=== PATIENT | female | born 1985 | race Two or more races ===

== ENCOUNTER 2023-03-15 17:45 | Inpatient (IN) | payer OTHER, SELFPAY ==
--- NOTE | ~2023-03-15 | CT_ITS ---
EXAMINATION: CT HEAD WITHOUT CONTRAST CLINICAL INFORMATION: Fall. History of epilepsy. COMPARISON: None. TECHNIQUE: Contiguous axial imaging was performed from the skull base to vertex without intravenous administration of contrast. Coronal and sagittal reformatted images are performed at the CT scanner. [This CT examination was performed using dose optimization techniques as appropriate, variously including the following: *Automated exposure control *Adjustment of mA and/or kV according to patient size (this includes techniques or standardized protocols for targeted exams where dose is matched to indication/reason for exam; i.e. extremities or head) *Use of iterative reconstruction technique] DLP: 600 mGy-cm. FINDINGS: There is no evidence of acute intracranial hemorrhage or territorial infarction. No abnormal mass-effect or midline shift is seen. [place] to white matter differentiation is well preserved. No extra-axial fluid collections are identified. The ventricles are normal in size. There is no abnormal attenuation within the brain parenchyma. There is no osseous abnormality. The mastoid air cells and visualized portions of the paranasal sinuses are well-aerated. CT/CT head/brain wo IV con IMPRESSION: No acute intracranial pathology.
[2023-03-15 18:50] VITALS: BP 142/88; PULSE 115; TEMP 36.3; O2SAT 99
[2023-03-15 19:26] VITALS: BMI 39.2
--- NOTE | 2023-03-15 23:24 | PC.ADMIT ---
Patient is a 38 year old mostly Lithuanian speaking female, admitted as a CV admission to at 1830 and placed on 15 minute safety check. Patient was a transfer from [facility], where she was medically cleared, evaluated and deemed in need of IPLOC secondary to aggressive behavior and there is a question if any of her medications might be the cause. According to the intake, patient's mother is telling patient that the patient is responding to AH. Patient was cooperative but quiet during the admission process. She appeared distracted or responding to internal stimuli. She denied any SI, HI AH or VH. She said she was anxious at a 6/10 but not depressed. She was somewhat guarded as to her reason for admission and said I don't want to talk about it . She signed releases and was able to answer questions. Patient has no previous admission to , but she is known to [facility]. Patient cooperative with skin check. Did look around the unit. Ready to take medications at HS. Treatment plan and safety tool done and need to be signed.
[2023-03-15] MEDS: risperiDONE 3 MG TABLET PO (23:38)
[2023-03-16] MEDS: Omeprazole 20 MG CAPSULE.DR PO (06:18)
[2023-03-16 09:05] VITALS: BP 106/76; PULSE 120; RESP 18; TEMP 36.4; O2SAT 98
[2023-03-16] MEDS: Divalproex Sodium ER 500 MG TAB.ER.24H PO (09:06)
[2023-03-16] MEDS: Multivitamin TABLET 1 TAB PO (09:06)
[2023-03-16 09:16] LABS: MANUAL DIFF FLAG NO
[2023-03-16 09:19] LABS: Basophils Percent Auto 0.4 % (0-2); Eosinophils Absolute Auto 0.2 X10*3/uL (0.0-0.4); Eosinophils Percent Auto 1.8 % (0-4); Hemoglobin 12.9 g/dl (12.0-16.0); Imm Gran Abs Auto 0.14 X10*3/uL (0.00-0.03); Imm Gran Pct Auto 1.7 % (0.0-0.4); Lymphocytes Percent Auto 36.2 % (20-40); Mean Corpuscular HGB Conc 33.1 g/dl (31.0-35.0); Mean Corpuscular Hemoglobin 30.4 pg (27.0-33.0); Mean Platelet Volume 9.1 fL (9.4-12.3); Monocytes Absolute Auto 0.7 X10*3/uL (0.1-1.2); Monocytes Percent Auto 8.8 % (2-11); Neutrophils Absolute Auto 4.2 x10*3/uL (2.0-8.3); Neutrophils Percent Auto 51.1 % (45-73); Platelet Count 268 X10*3/uL (160-400); Red Blood Count 4.24 X10*6/uL (4.20-5.50); Red Cell Distribution Width 14.6 % (11.0-16.0); White Blood Count 8.2 X10*3/uL (4.8-10.8)
[2023-03-16 09:32] LABS: Estimated Average Glucose 103 mg/dL; Hemoglobin A1c % 5.2 % (<6.0)
[2023-03-16 09:42] LABS: Alanine Aminotransferase 30 U/L (0-31); Albumin Level 4.2 g/dL (3.5-5.0); Alkaline Phosphatase 107 U/L (39-117); Anion Gap 16 (12-20); Aspartate Amino Transferase 34 U/L (5-31); Bilirubin Direct 0.3 mg/dL (0.0-0.5); Bilirubin Total 0.4 mg/dL (0.0-1.0); Blood Urea Nitrogen 11 mg/dL (9-16); Calcium 9.3 mg/dL (8.4-10.2); Carbon Dioxide 22 mmol/L (22-29); Chloride 107 mmol/L (96-108); Cholesterol 159 mg/dL (<200); Creatinine Clr Calc Pharmacy 60.1; Estimated Glomerular Filt Rate 47; Glucose Fasting 131 mg/dL (60-99); HDL Cholesterol 51 mg/dL (>40); LDL Cholesterol Calculated 78 mg/dL (<100); Potassium 3.6 mmol/L (3.3-5.1); Sodium 141 mmol/L (135-145); Total Protein 7.5 g/dL (6.5-8.0); Triglycerides 152 mg/dL (<150)
[2023-03-16 09:52] LABS: Free T4 (Free Thyroxine) 1.06 ng/dL (0.71-1.85); Thyroid Stimulating Hormone 2.29 uIU/mL (0.32-4.0)
[2023-03-16 10:06] LABS: Vitamin B12 591 pg/mL (200-900)
--- NOTE | 2023-03-16 12:43 | P.CONHOSP_ITS ---
History of Present Illness Data of Consult Service Date: 03/16/23 Primary Care Provider: Unknown Physician HPI Reason for consult: Admission H&P Pt is a 38-year-old female with a PMH significant for?seizure disorder, anxiety, depression, and bipolar disorder who is admitted to M3 psychiatry unit for increasing paranoia and appearing withdrawn. Patient presented accompanied by her family report she has been hearing voices, responding to internal stimuli, and been noncompliant with her medications. Medical consult for admission H&P. ?Patient appears very subdued and quiet, and is mostly cooperative with interview and examination, though refuses some aspects of HPI and PE. Patient does not appear to be fully aware of her medical history, though does report a history of seizure disorder. She is very vague of what occurs when she has a seizure or how often she experiences them, but they appear to occur at least on a weekly basis. She apparently sees a neurologist outpatient who manages her condition, but it is unclear when her last visit was. She denies any other PMH. Currently she voices no acute medical complaints at this time. Denies chest pain/pressure, palpitations. No shortness of breath. Denies fever, chills, nausea, vomiting, diarrhea, abdominal pain. No headache, acute vision changes. Labs reviewed, grossly unremarkable. Review of Systems 2 Review of Systems: Pt has no acute medical complaints at this time [facility] Medical History Seizure disorder Schizoaffective disorder, bipolar type Social History Household Members: Children Household Members Other:: Lives with son Housing: Apartment Do you presently have visiting nurse or other home services: No Patient Tobacco Use Status: Former Tobacco user Tobacco use type: Cigarette Smoked in Last 30 Days: No Patient Interested in Nicotine Replacement: No Patient Given Instructions on How to Stop Smoking: No Second Hand Smoke Exposure: No Use of substances other than those prescribed or required for medical reasons: No Currently Displaying Signs/Symptoms of Drug Intoxication Withdrawal: No Have you been hit, kicked, punched, or otherwise hurt by someone within the past year? If so, by whom?: No Do you feel safe in your current relationship?: No Current Relationship Is there a partner from a previous relationship who is making you feel unsafe now?: No Are you made to feel afraid or neglected: No Spiritual Healthcare Practices: None Reported Restorationist Healthcare Practices: None Reported Cultural Healthcare Practices: None Reported Advance Directives: No Advance Directives Information Provided: No Do you have thoughts of harming others: None Do you have a plan to hurt others: No Plan Recently lost weight without trying: No Eating poorly because of decreased appetite: No Nutrition Risks: No Nutritional Risk Patient : No : No Poor oral hygiene: No Meds Allergies Allergy/AdvReac Type Severity Reaction Status Date / Time folic acid Allergy Unknown Verified 03/15/23 16:35 ibuprofen Allergy Unknown Verified 03/15/23 16:35 loratadine Allergy Unknown Verified 03/15/23 16:35 phenytoin Allergy Unknown Verified 03/15/23 16:35 Active Medications: Current Medications Acetaminophen (Acetaminophen 325 Mg Tablet) 650 mg PO Q6H PRN PRN Reason: Headache/Pain Mild Scale (1-3) Al Hydroxide/Mg Hydroxide (Magnesium Hydrox/Alum Hydrox 30 Ml Oral.Susp) 30 ml PO Q6H PRN PRN Reason: Heartburn/Nausea Divalproex Sodium (Divalproex Sodium Er 500 Mg Tab.Er.24h) 500 mg PO DAILY [facility] Last Admin: 03/16/23 09:06 Dose: 500 mg Hydroxyzine HCl (Hydroxyzine Hcl 25 Mg Tablet) 25 mg PO Q6H PRN PRN Reason: Anxiety Magnesium Hydroxide (Milk Of Magnesia 30 Ml Oral.Susp) 30 ml PO DAILY PRN PRN Reason: Constipation Multivitamins/Vitamin C (Multivitamin Tablet) 1 tab PO DAILY [facility] Last Admin: 03/16/23 09:06 Dose: 1 tab Nicotine Polacrilex (Nicotine Polacrilex 2 Mg Gum) 4 mg BUCCAL Q2H PRN PRN Reason: Nicotine Cravings Omeprazole (Omeprazole 20 Mg Capsule.Dr) 20 mg PO DAILY@0630 [facility] Last Admin: 03/16/23 06:18 Dose: 20 mg Risperidone (Risperidone 3 Mg Tablet) 3 mg PO BEDTIME [facility] Last Admin: 03/15/23 23:38 Dose: 3 mg Trazodone HCl (Trazodone Hcl 50 Mg Tablet) 50 mg PO BEDTIME MRX1 PRN PRN Reason: Insomnia Home Medications Medication Instructions Recorded Confirmed Last Taken Type Depakote ER 500 mg PO DAILY 11/03/15/23 03/15/23 14:40 History Iron/Multivitamin/Mineral 1 cap PO DAILY 03/15/23 03/15/23 Unknown History clonazepam 0.5 mg PO DAILY PRN Anxiety 03/15/23 03/15/23 Unknown History lamotrigine 300 mg PO DAILY 03/15/23 03/15/23 Unknown History omeprazole 20 mg PO DAILY@0630 03/15/23 03/15/23 Unknown History risperidone 3 mg PO BEDTIME 03/15/23 03/15/23 Unknown History Physical Exam 2 Vital Signs and Narrative: Vital Signs: Last Vital Signs Temp 97.6 F 03/16/23 09:05 Pulse 120 H 03/16/23 09:05 Resp 18 03/16/23 09:05 BP 106/76 03/16/23 09:05 Pulse Ox 98 03/16/23 09:05 O2 Del Method Room Air 03/16/23 09:05 BMI result Body Mass Index 39.2 General: AOx3, no acute distress Resp: CTA bilaterally CVS: S1, S2, RRR GI: +BS, NT, no distention Skin: No rash Neuro: Cranial nerves II-XII grossly intact bilaterally. Motor grossly intact bilaterally Extremities: No edema Psych: Quiet, subdued, occasionally refusing to participate in interview and examination Results Labs 03/16/23 09:12 03/16/23 09:12 Labs: Laboratory Results - last 24 hr 03/16/23 09:12 MCV 92.0 MCH 30.4 MCHC 33.1 RDW 14.6 Plt Count 268 MPV 9.1 L Immature Gran % (Auto) 1.7 H Neut % (Auto) 51.1 Lymph % (Auto) 36.2 [place] % (Auto) 8.8 Eos % (Auto) 1.8 Baso % (Auto) 0.4 Lymph # (Auto) 3.0 [place] # (Auto) 0.7 Eos # (Auto) 0.2 Baso # (Auto) 0.0 Abs Immat Gran (auto) 0.14 H Absolute Neuts (auto) 4.2 Absolute Nucleated RBC 0.000 Nucleated RBC % (auto) 0.0 Anion Gap 16 Estim Creat Clear Calc 60.1 Estimated GFR 47 Fasting Glucose 131 H Estimat Average Glucose 103 Hemoglobin A1c % 5.2 Calcium 9.3 Total Bilirubin 0.4 Direct Bilirubin 0.3 AST 34 H ALT 30 Alkaline Phosphatase 107 Total Protein 7.5 Albumin 4.2 Triglycerides 152 H Cholesterol 159 LDL Cholesterol, Calc 78 HDL Cholesterol 51 Vitamin B12 591 Folate 8.0 TSH 2.29 Free T4 1.06 Assessment and Plan (1) Medical clearance for psychiatric admission: Status: Acute Plan Pt is a 38-year-old female with a PMH significant for?seizure disorder, anxiety, depression, and bipolar disorder who is admitted to M3 psychiatry unit for increasing paranoia and appearing withdrawn. Patient presented accompanied by her family report she has been hearing voices, responding to internal stimuli, and been noncompliant with her medications. Medical consult for admission H&P. Mood disorder Plan as per psychiatry Seizure disorder Continue Depakote, lamotrigine GERD PPI Thank you for allowing us to participate in the care of this patient. Signing off at this time. Please let us know if there are any acute complaints or questions.
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
--- NOTE | 2023-03-16 15:32 | PC.NURSE ---
Yumi was offered the flu vaccine stated I never had it, and I don't want it.
[2023-03-16] MEDS: clonazePAM 0.5 MG TABLET PO (15:57)
[2023-03-16 16:52] VITALS: BP 122/74; PULSE 112; RESP 16; TEMP 36.4; O2SAT 97
[2023-03-16] MEDS: risperiDONE 3 MG TABLET PO (21:52)
[2023-03-16] MEDS: lamoTRIgine 100 MG TABLET 300 MG PO (21:53)
[2023-03-17] MEDS: Omeprazole 20 MG CAPSULE.DR PO (06:25)
[2023-03-17 08:00] VITALS: BP 129/77; PULSE 97; TEMP 36.6; O2SAT 98
[2023-03-17] MEDS: lamoTRIgine 100 MG TABLET 300 MG PO ×2 (11:02→20:09)
[2023-03-17] MEDS: Divalproex Sodium 250 MG TABLET.DR PO (11:02)
[2023-03-17] MEDS: Multivitamin TABLET 1 TAB PO (11:02)
[2023-03-17] MEDS: Divalproex Sodium ER 500 MG TAB.ER.24H PO (11:02)
--- NOTE | 2023-03-17 14:37 | P.PNPSI_ITS ---
Subjective Subjective Date of Service: 03/17/23 Reason For Visit: Schizophrenia Subjective Notes: Conditional Voluntary Healthcare Proxy: No Guardianship: No Medical Problems Affecting Mental Status: No Interim History: Pt with some confusion at times, overall increase in clarity. Tea report she has been exit seeking, attempting to open the unit doors. Today, she asks why she was admitted-reviewed with her, this is embarrassing . Continues with intermittent feelings of being unbalanced . Mother visited, messages left for both parents to review care, pt approved. She does not know who her neurologist is so will be asking parents. Medication Compliance: Yes Side effects from medications: No Attending Groups: No Review of Systems Acute medical concerns: No Medical Review of Systems: unchanged Review of Systems Reports other (states she feels unbalanced at times. Seizure d/o dx) Mental Status Exam Mental Status Exam Patient Appearance: Fatigued Patient Orientation: Person, Place and Situation Level of Consciousness: Alert Patient Behavior: Guarded, Talkative, Suspicious, Anxious, Resistive to Care, Distractible and Good Eye Contact Mood Description: Withdrawn and Constricted Affect Description: Withdrawn and Constricted Patient Cognition Impaired: No Ability to Follow Directions: Fair Speech Pattern: Spontaneous Speech and Soft-Spoken Memory Description: Episodic Impaired Hallucinations: Auditory Delusions: Paranoid Ideation and Present Thought Process: Distracted and Rumination Thought Content: positive for [place], positive for Circumstantial, positive for Perseveration and positive for Thought Blocking (???) Abnormal Motor Activity Signs and Symptoms: Restlessness Judgement: Fair Diagnostics Vital Signs (24Hr): Vital Signs - 24 hr 03/16/23 16:52 03/17/23 08:00 Temperature 97.5 F 97.8 F Pulse Rate 112 H 97 Respiratory Rate 16 Blood Pressure 122/74 129/77 Pulse Oximetry 97 98 Oxygen Delivery Method Room Air Room Air BMI result Body Mass Index 39.2 Labs 03/16/23 09:12 03/16/23 09:12 Labs: Laboratory Results - last 48 hr 03/16/23 09:12 WBC 8.2 RBC 4.24 Hgb 12.9 Hct 39.0 MCV 92.0 MCH 30.4 MCHC 33.1 RDW 14.6 Plt Count 268 MPV 9.1 L Immature Gran % (Auto) 1.7 H Neut % (Auto) 51.1 Lymph % (Auto) 36.2 [place] % (Auto) 8.8 Eos % (Auto) 1.8 Baso % (Auto) 0.4 Lymph # (Auto) 3.0 [place] # (Auto) 0.7 Eos # (Auto) 0.2 Baso # (Auto) 0.0 Abs Immat Gran (auto) 0.14 H Absolute Neuts (auto) 4.2 Absolute Nucleated RBC 0.000 Nucleated RBC % (auto) 0.0 Sodium 141 Potassium 3.6 Chloride 107 Carbon Dioxide 22 Anion Gap 16 BUN 11 Creatinine 1.29 Estim Creat Clear Calc 60.1 Estimated GFR 47 Fasting Glucose 131 H Estimat Average Glucose 103 Hemoglobin A1c % 5.2 Calcium 9.3 Total Bilirubin 0.4 Direct Bilirubin 0.3 AST 34 H ALT 30 Alkaline Phosphatase 107 Total Protein 7.5 Albumin 4.2 Triglycerides 152 H Cholesterol 159 LDL Cholesterol, Calc 78 HDL Cholesterol 51 Vitamin B12 591 Folate 8.0 TSH 2.29 Free T4 1.06 Medications Medications Current Medications Acetaminophen (Acetaminophen 325 Mg Tablet) 650 mg PO Q6H PRN PRN Reason: Headache/Pain Mild Scale (1-3) Al Hydroxide/Mg Hydroxide (Magnesium Hydrox/Alum Hydrox 30 Ml Oral.Susp) 30 ml PO Q6H PRN PRN Reason: Heartburn/Nausea Clonazepam (Clonazepam 0.5 Mg Tablet) 0.5 mg PO DAILY PRN PRN Reason: Anxiety Last Admin: 03/16/23 15:57 Dose: 0.5 mg Divalproex Sodium (Divalproex Sodium Er 500 Mg Tab.Er.24h) 500 mg PO DAILY [facility] Last Admin: 03/17/23 11:02 Dose: 500 mg Divalproex Sodium (Divalproex Sodium 250 Mg Tablet.Dr) 250 mg PO DAILY [facility] Last Admin: 03/17/23 11:02 Dose: 250 mg Ergocalciferol (Ergocalciferol (Vitamin D2) 1,250 Mcg Capsule) 1,250 mcg PO Q7D [facility] Hydroxyzine HCl (Hydroxyzine Hcl 25 Mg Tablet) 25 mg PO Q6H PRN PRN Reason: Anxiety Lamotrigine (Lamotrigine 100 Mg Tablet) 300 mg PO BID [facility] Last Admin: 03/17/23 11:02 Dose: 300 mg Magnesium Hydroxide (Milk Of Magnesia 30 Ml Oral.Susp) 30 ml PO DAILY PRN PRN Reason: Constipation Multivitamins/Vitamin C (Multivitamin Tablet) 1 tab PO DAILY [facility] Last Admin: 03/17/23 11:02 Dose: 1 tab Nicotine Polacrilex (Nicotine Polacrilex 2 Mg Gum) 4 mg BUCCAL Q2H PRN PRN Reason: Nicotine Cravings Omeprazole (Omeprazole 20 Mg Capsule.Dr) 20 mg PO DAILY@0630 [facility] Last Admin: 03/17/23 06:25 Dose: 20 mg Risperidone (Risperidone 3 Mg Tablet) 3 mg PO BEDTIME [facility] Last Admin: 03/16/23 21:52 Dose: 3 mg Trazodone HCl (Trazodone Hcl 50 Mg Tablet) 50 mg PO BEDTIME MRX1 PRN PRN Reason: Insomnia Allergies Allergies Allergy/AdvReac Type Severity Reaction Status Date / Time folic acid Allergy Unknown Verified 03/15/23 16:35 ibuprofen Allergy Unknown Verified 03/15/23 16:35 loratadine Allergy Unknown Verified 03/15/23 16:35 phenytoin Allergy Unknown Verified 03/15/23 16:35 Assessment & Plan Assessment & Plan (1) Medical clearance for psychiatric admission: Status: Acute Code(s): Z00.8 - Encounter for other general examination Plan Pt is a 38-year-old female with a PMH significant for?seizure disorder, anxiety, depression, and bipolar disorder who is admitted to psychiatry unit for increasing paranoia and appearing withdrawn. Patient presented accompanied by her family report she has been hearing voices, responding to internal stimuli, and been noncompliant with her medications. Medical consult for admission H&P. Mood disorder Plan as per psychiatry Seizure disorder Continue Depakote, lamotrigine GERD PPI Thank you for allowing us to participate in the care of this patient. Signing off at this time. Please let us know if there are any acute complaints or questions. 03/17/23- Continue to gather collateral. At this time, continue current regime and plan of care. Patient educated on: therapeutic strategies Informed Consent: further education needed Reason for continued inpatient stay Substantial Risk for: rapid decompensation Time Spent With Patient Time: Total time managing care of this patient today ____ minutes.
[2023-03-17 17:39] VITALS: BP 129/81; PULSE 112; RESP 17; O2SAT 99
[2023-03-17] MEDS: risperiDONE 3 MG TABLET PO (18:17)
[2023-03-17] MEDS: hydrOXYzine HCL 25 MG TABLET PO (18:17)
[2023-03-17] MEDS: clonazePAM 0.5 MG TABLET PO (18:17)
[2023-03-17 18:35] VITALS: BP 140/91; PULSE 111; RESP 16; TEMP 36.6; O2SAT 97
[2023-03-18] MEDS: Omeprazole 20 MG CAPSULE.DR PO (06:04)
[2023-03-18 08:16] VITALS: BP 142/68; PULSE 78; RESP 16; TEMP 36.8; O2SAT 96
[2023-03-18] MEDS: Divalproex Sodium 250 MG TABLET.DR PO (11:25)
[2023-03-18] MEDS: lamoTRIgine 100 MG TABLET 300 MG PO (11:26)
[2023-03-18] MEDS: Multivitamin TABLET 1 TAB PO (11:26)
[2023-03-18] MEDS: Divalproex Sodium ER 500 MG TAB.ER.24H PO (11:26)
[2023-03-18] MEDS: risperiDONE 1 MG TABLET PO (11:31)
[2023-03-18 13:29] LABS: Ammonia 25 umol/L (13-55)
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
--- NOTE | 2023-03-18 16:03 | PC.NURSE ---
PT became paranoid once brought down for EEG and was perseverating on the delusion that the staff was cutting her hair. Unable to complete EEG. CAW made aware via [employer].
[2023-03-18] MEDS: Zonisamide 100 MG CAPSULE 400 MG PO (16:17)
[2023-03-18 18:10] VITALS: BP 131/92; PULSE 113; RESP 16; TEMP 36.6; O2SAT 97
[2023-03-18] MEDS: lamoTRIgine 100 MG TABLET 200 MG PO (21:08)
[2023-03-18] MEDS: risperiDONE 3 MG TABLET PO (21:08)
[2023-03-19] MEDS: Omeprazole 20 MG CAPSULE.DR PO (06:14)
[2023-03-19 07:46] LABS: Valproate 82.1 mcg/mL (50.0-100.0)
[2023-03-19 08:00] VITALS: BP 134/62; PULSE 96; TEMP 36.4; O2SAT 98
[2023-03-19] MEDS: risperiDONE 1 MG TABLET PO (08:50)
[2023-03-19] MEDS: Zonisamide 100 MG CAPSULE 400 MG PO (08:50)
[2023-03-19] MEDS: lamoTRIgine 100 MG TABLET 200 MG PO ×2 (08:50→21:25)
[2023-03-19] MEDS: Multivitamin TABLET 1 TAB PO (08:50)
[2023-03-19] MEDS: Acetaminophen 325 MG TABLET 650 MG PO (09:14)
--- NOTE | 2023-03-19 09:27 | P.PNPSI_ITS ---
Subjective Subjective Date of Service: 03/19/23 Reason For Visit: Schizophrenia Interim History: Met with patient; discussed with team in better behavioral control; slept last night Depakote level on 03/19 82.1 WNL however Depakote discontinued and she did not receive any today, per plan Patient later on reported feeling some abdominal discomfort, dizzy; says has not had bowel movement in a few days but thinks it will resolve on its own Mental Status Exam Mental Status Exam Patient Appearance: Fatigued Patient Orientation: Person, Place and Situation Level of Consciousness: Alert Patient Behavior: Guarded, Talkative, Suspicious, Anxious, Resistive to Care, Distractible and Good Eye Contact Mood Description: Withdrawn and Constricted Affect Description: Withdrawn and Constricted Patient Cognition Impaired: No Ability to Follow Directions: Fair Speech Pattern: Spontaneous Speech and Soft-Spoken Memory Description: Episodic Impaired Hallucinations: Auditory Delusions: Paranoid Ideation and Present Thought Process: Distracted and Rumination Thought Content: positive for [place], positive for Circumstantial, positive for Persever[place] and positive for Thought Blocking (???) Abnormal Motor Activity Signs and Symptoms: Restlessness Judgement: Fair Diagnostics Vital Signs (24Hr): Vital Signs - 24 hr 03/18/23 18:10 03/19/23 08:00 Temperature 97.9 F 97.5 F Pulse Rate 113 H 96 Respiratory Rate 16 Blood Pressure 131/92 H 134/62 Pulse Oximetry 97 98 Oxygen Delivery Method Room Air Room Air BMI result Body Mass Index 39.2 Labs 03/16/23 09:12 03/16/23 09:12 Labs: Laboratory Results - last 48 hr 03/18/23 03/19/23 13:18 07:12 Ammonia 25 Valproic Acid 82.1 Imaging Radiology Impressions: ITS Impressions Head CT 03/18/23 14:55 IMPRESSION: No acute intracranial pathology. Medications Medications Current Medications Acetaminophen (Acetaminophen 325 Mg Tablet) 650 mg PO Q6H PRN PRN Reason: Headache/Pain Mild Scale (1-3) Last Admin: 03/19/23 09:14 Dose: 650 mg Al Hydroxide/Mg Hydroxide (Magnesium Hydrox/Alum Hydrox 30 Ml Oral.Susp) 30 ml PO Q6H PRN PRN Reason: Heartburn/Nausea Clonazepam (Clonazepam 0.5 Mg Tablet) 0.5 mg PO DAILY PRN PRN Reason: Anxiety Last Admin: 03/17/23 18:17 Dose: 0.5 mg Ergocalciferol (Ergocalciferol (Vitamin D2) 1,250 Mcg Capsule) 1,250 mcg PO Q7D [facility] Hydroxyzine HCl (Hydroxyzine Hcl 25 Mg Tablet) 25 mg PO Q6H PRN PRN Reason: Anxiety Last Admin: 03/17/23 18:17 Dose: 25 mg Lamotrigine (Lamotrigine 100 Mg Tablet) 200 mg PO BID [facility] Last Admin: 03/19/23 08:50 Dose: 200 mg Magnesium Hydroxide (Milk Of Magnesia 30 Ml Oral.Susp) 30 ml PO DAILY PRN PRN Reason: Constipation Multivitamins/Vitamin C (Multivitamin Tablet) 1 tab PO DAILY [facility] Last Admin: 03/19/23 08:50 Dose: 1 tab Nicotine Polacrilex (Nicotine Polacrilex 2 Mg Gum) 4 mg BUCCAL Q2H PRN PRN Reason: Nicotine Cravings Omeprazole (Omeprazole 20 Mg Capsule.Dr) 20 mg PO DAILY@0630 [facility] Last Admin: 03/19/23 06:14 Dose: 20 mg Risperidone (Risperidone 3 Mg Tablet) 3 mg PO BEDTIME [facility] Last Admin: 03/18/23 21:08 Dose: 3 mg Risperidone (Risperidone 1 Mg Tablet) 1 mg PO DAILY [facility] Last Admin: 03/19/23 08:50 Dose: 1 mg Trazodone HCl (Trazodone Hcl 50 Mg Tablet) 50 mg PO BEDTIME MRX1 PRN PRN Reason: Insomnia Zonisamide (Zonisamide 100 Mg Capsule) 400 mg PO DAILY [facility] Last Admin: 03/19/23 08:50 Dose: 400 mg Allergies Allergies Allergy/AdvReac Type Severity Reaction Status Date / Time folic acid Allergy Unknown Verified 03/15/23 16:35 ibuprofen Allergy Unknown Verified 03/15/23 16:35 loratadine Allergy Unknown Verified 03/15/23 16:35 phenytoin Allergy Unknown Verified 03/15/23 16:35 Assessment & Plan Assessment & Plan (1) Medical clearance for psychiatric admission: Status: Acute Code(s): Z00.8 - Encounter for other general examination Plan Pt is a 38-year-old female with a PMH significant for?seizure disorder, anxiety, depression, and bipolar disorder who is admitted to psychiatry unit for increasing paranoia and appearing withdrawn. Patient presented accompanied by her family report she has been hearing voices, responding to internal stimuli, and been noncompliant with her medications. Medical consult for admission H&P. -grandmal - 03/17/23- Continue to gather collateral. At this time, continue current regime and plan of care. 03/18/23- Consults with parents, neurologist, Dr. Mishra -Neuro consult -Labs-valproate, lamictal, ammonia 25 (13-55) -EEG -CAT -Decrease Lamictal to 200 mg bid (since maybe lamictal-toxic; lamictal encephalopathy) -Zonegran 400 mg daily -DC Depakote 03/19 -better behavioral control today -patient reported feeling nauseous, with mild stomach discomfort and says she felt dizzy. She says she has not had a bowel movement in several days. Did not want any medication to help with this but said she will eventually have a BM on her own. Patient has been drinking fluids. Vitals stable Plan: Discontinued Depakote 750mg, last dose on 03/18; level drawn today on 03/19 and WNL at 82 Continue Zonegran 400 mg daily Continue Lamictal 200 mg b.i.d. (recently decreased; concern for possibly being lamictal-toxic; lamictal encephalopathy)) Although patient does have seizure disorder, discussed with Bharat and plan remains to dc depakote rather than taper (per dr. Mishra, [facility] neurology) Patient educated on: diagnosis and medication risk/benefits Informed Consent: understands, does not understand and further education needed Reason for continued inpatient stay Substantial Risk for: inability to function Time Spent With Patient Time: Total time managing care of this patient today ____ minutes.
[2023-03-19] MEDS: LORazepam 1 MG TABLET 2 MG PO (15:13)
[2023-03-19 18:51] VITALS: BP 94/93; PULSE 76; RESP 20; TEMP 36.3; O2SAT 97
[2023-03-19] MEDS: LORazepam 1 MG TABLET PO (21:24)
[2023-03-19] MEDS: risperiDONE 3 MG TABLET PO (21:25)
[2023-03-20] MEDS: Omeprazole 20 MG CAPSULE.DR PO (06:17)
[2023-03-20 08:00] VITALS: BP 108/70; PULSE 92; TEMP 36.2; O2SAT 99
[2023-03-20] MEDS: Zonisamide 100 MG CAPSULE 400 MG PO (08:24)
[2023-03-20] MEDS: lamoTRIgine 100 MG TABLET 200 MG PO ×2 (08:24→21:52)
[2023-03-20] MEDS: risperiDONE 1 MG TABLET PO (08:24)
[2023-03-20] MEDS: Multivitamin TABLET 1 TAB PO (08:24)
--- NOTE | 2023-03-20 11:16 | P.PNPSI_ITS ---
Subjective Subjective Date of Service: 03/20/23 Reason For Visit: Schizophrenia Interim History: Met with patient; discussed with team Patient reports that she is feeling a little better today. Patient slept last night. Says her anxiety and depression or down. Denies any nausea today. Mental Status Exam Mental Status Exam Patient Appearance: Fatigued Patient Orientation: Person, Place and Situation Level of Consciousness: Alert Patient Behavior: Guarded, Talkative, Suspicious, Anxious, Resistive to Care, Distractible and Good Eye Contact Mood Description: Withdrawn and Constricted Affect Description: Withdrawn and Constricted Patient Cognition Impaired: No Ability to Follow Directions: Fair Speech Pattern: Spontaneous Speech and Soft-Spoken Memory Description: Episodic Impaired Hallucinations: Auditory Delusions: Paranoid Ideation and Present Thought Process: Distracted and Rumination Thought Content: positive for [place], positive for Circumstantial, positive for Perseveration and positive for Thought Blocking (???) Abnormal Motor Activity Signs and Symptoms: Restlessness Judgement: Fair Diagnostics Vital Signs (24Hr): Vital Signs - 24 hr 03/19/23 18:51 03/20/23 08:00 Temperature 97.3 F 97.2 F Pulse Rate 76 92 Respiratory Rate 20 Blood Pressure 94/93 H 108/70 Pulse Oximetry 97 99 Oxygen Delivery Method Room Air Room Air BMI result Body Mass Index 39.2 Labs 03/16/23 09:12 03/16/23 09:12 Labs: Laboratory Results - last 48 hr 03/18/23 03/19/23 13:18 07:12 Ammonia 25 Valproic Acid 82.1 Imaging Radiology Impressions: ITS Impressions Head CT 03/18/23 14:55 IMPRESSION: No acute intracranial pathology. Medications Medications Current Medications Acetaminophen (Acetaminophen 325 Mg Tablet) 650 mg PO Q6H PRN PRN Reason: Headache/Pain Mild Scale (1-3) Last Admin: 03/19/23 09:14 Dose: 650 mg Al Hydroxide/Mg Hydroxide (Magnesium Hydrox/Alum Hydrox 30 Ml Oral.Susp) 30 ml PO Q6H PRN PRN Reason: Heartburn/Nausea Clonazepam (Clonazepam 0.5 Mg Tablet) 0.5 mg PO DAILY PRN PRN Reason: Anxiety Last Admin: 03/17/23 18:17 Dose: 0.5 mg Ergocalciferol (Ergocalciferol (Vitamin D2) 1,250 Mcg Capsule) 1,250 mcg PO Q7D [facility] Hydroxyzine HCl (Hydroxyzine Hcl 25 Mg Tablet) 25 mg PO Q6H PRN PRN Reason: Anxiety Last Admin: 03/17/23 18:17 Dose: 25 mg Lamotrigine (Lamotrigine 100 Mg Tablet) 200 mg PO BID [facility] Last Admin: 03/20/23 08:24 Dose: 200 mg Lorazepam (Lorazepam 1 Mg Tablet) 1 mg PO TID PRN PRN Reason: nausea (prodrom to seizure) Last Admin: 03/19/23 21:24 Dose: 1 mg Magnesium Hydroxide (Milk Of Magnesia 30 Ml Oral.Susp) 30 ml PO DAILY PRN PRN Reason: Constipation Multivitamins/Vitamin C (Multivitamin Tablet) 1 tab PO DAILY [facility] Last Admin: 03/20/23 08:24 Dose: 1 tab Nicotine Polacrilex (Nicotine Polacrilex 2 Mg Gum) 4 mg BUCCAL Q2H PRN PRN Reason: Nicotine Cravings Omeprazole (Omeprazole 20 Mg Capsule.Dr) 20 mg PO DAILY@0630 [facility] Last Admin: 03/20/23 06:17 Dose: 20 mg Risperidone (Risperidone 3 Mg Tablet) 3 mg PO BEDTIME [facility] Last Admin: 03/19/23 21:25 Dose: 3 mg Risperidone (Risperidone 1 Mg Tablet) 1 mg PO DAILY [facility] Last Admin: 03/20/23 08:24 Dose: 1 mg Trazodone HCl (Trazodone Hcl 50 Mg Tablet) 50 mg PO BEDTIME MRX1 PRN PRN Reason: Insomnia Zonisamide (Zonisamide 100 Mg Capsule) 400 mg PO DAILY [facility] Last Admin: 03/20/23 08:24 Dose: 400 mg Allergies Allergies Allergy/AdvReac Type Severity Reaction Status Date / Time folic acid Allergy Unknown Verified 03/15/23 16:35 ibuprofen Allergy Unknown Verified 03/15/23 16:35 loratadine Allergy Unknown Verified 03/15/23 16:35 phenytoin Allergy Unknown Verified 03/15/23 16:35 Assessment & Plan Assessment & Plan (1) Medical clearance for psychiatric admission: Status: Acute Code(s): Z00.8 - Encounter for other general examination Plan Pt is a 38-year-old female with a PMH significant for?seizure disorder, anxiety, depression, and bipolar disorder who is admitted to psychiatry unit for increasing paranoia and appearing withdrawn. Patient presented accompanied by her family report she has been hearing voices, responding to internal stimuli, and been noncompliant with her medications. Medical consult for admission H&P. -grandmal - 03/17/23- Continue to gather collateral. At this time, continue current regime and plan of care. 03/18/23- Consults with parents, neurologist, Dr. Mishra -Neuro consult -Labs-valproate, lamictal, ammonia 25 (13-55) -EEG -CAT -Decrease Lamictal to 200 mg bid (since maybe lamictal-toxic; lamictal encephalopathy) -Zonegran 400 mg daily -DC Depakote 03/19 -better behavioral control today -patient reported feeling nauseous, with mild stomach discomfort and says she felt dizzy. She says she has not had a bowel movement in several days. Did not want any medication to help with this but said she will eventually have a BM on her own. Patient has been drinking fluids. Vitals stable -Mother reports that patient complaint of headache and nausea is usually prodrome to pending seizure. -Vpk Teacher discussed case with Dr. Mishra who agreed with using Ativan as a p.r.n. if concern for pending seizure. Continues to recommend keeping Depakote discontinued as a Depakote encephalopathy can resolve very quickly once Depakote is discontinued, even if the levels remained therapeutic. Also not to go up on Lamictal given possible Lamictal toxicity as level is still pending; recommends to not at any additional anti epileptics or increase existing ones. 03/20 Continue current treatment plan; no seizures; sleeping through the night Plan: Discontinued Depakote 750mg, last dose on 03/18; level drawn today on 03/19 and WNL at 82 Continue Zonegran 400 mg daily Continue Lamictal 200 mg b.i.d. (recently decreased; concern for possibly being lamictal-toxic; lamictal encephalopathy)) Although patient does have seizure disorder, discussed with Bharat and plan remains to dc depakote rather than taper (per dr. Mishra, [facility] neurology) Patient educated on: diagnosis Informed Consent: further education needed Reason for continued inpatient stay Substantial Risk for: rapid decompensation Time Spent With Patient Time: Total time managing care of this patient today ____ minutes.
[2023-03-20 18:00] VITALS: BP 120/61; PULSE 98; RESP 17; TEMP 36.5; O2SAT 98
[2023-03-20] MEDS: risperiDONE 3 MG TABLET PO (21:51)
[2023-03-21] MEDS: Omeprazole 20 MG CAPSULE.DR PO (06:13)
[2023-03-21] MEDS: risperiDONE 1 MG TABLET PO (08:55)
[2023-03-21] MEDS: lamoTRIgine 100 MG TABLET 200 MG PO ×2 (08:55→22:15)
[2023-03-21] MEDS: Multivitamin TABLET 1 TAB PO (08:55)
[2023-03-21] MEDS: Zonisamide 100 MG CAPSULE 400 MG PO (08:55)
[2023-03-21 09:08] VITALS: BP 140/79; PULSE 79; RESP 18; TEMP 36.4; O2SAT 98
--- NOTE | 2023-03-21 09:37 | P.PNPSI_ITS ---
Subjective Subjective Date of Service: 03/21/23 Reason For Visit: Schizophrenia Subjective Notes: Conditional Voluntary Healthcare Proxy: No Guardianship: No Medical Problems Affecting Mental Status: No Interim History: Review with pt recommendations of Dr. Mishra, her neurologist. Reports feeling improved, no seizure activity. Discussed adding Depakote to her allergy list, she agrees. Reviewed care with pt's father, who will assist pt with discharge on 03/22 and with follow up appts. She discussed feeling she did not need admission to psychiatry as she appears to have had an adverse response to depakote and possibly lamictal (level pending). We discussed process of attempting to gather this information last week to help her with sx. and treatment course. Medication Compliance: Yes Side effects from medications: No Attending Groups: Yes Review of Systems Acute medical concerns: No Medical Review of Systems: unchanged Mental Status Exam Mental Status Exam Patient Appearance: Appropriate Patient Orientation: Person, Place, Time and Situation Level of Consciousness: Alert Patient Behavior: Guarded, Talkative and Good Eye Contact Mood Description: Withdrawn Affect Description: Flat Patient Cognition Impaired: No Ability to Follow Directions: Good Speech Pattern: Spontaneous Speech Memory Description: Episodic Impaired Hallucinations: None Delusions: Not Present Thought Process: Distracted Thought Content: positive for Circumstantial Depressive Symptoms: Thoughts of /Suicide (denies) Judgement: Good Diagnostics Vital Signs (24Hr): Vital Signs - 24 hr 03/20/23 18:00 03/21/23 09:08 Temperature 97.7 F 97.6 F Pulse Rate 98 79 Respiratory Rate 17 18 Blood Pressure 120/61 140/79 H Pulse Oximetry 98 98 Oxygen Delivery Method Room Air Room Air BMI result Body Mass Index 39.2 Labs 03/16/23 09:12 03/16/23 09:12 Imaging Radiology Impressions: ITS Impressions Head CT 03/18/23 14:55 IMPRESSION: No acute intracranial pathology. Medications Medications Current Medications Acetaminophen (Acetaminophen 325 Mg Tablet) 650 mg PO Q6H PRN PRN Reason: Headache/Pain Mild Scale (1-3) Last Admin: 03/19/23 09:14 Dose: 650 mg Al Hydroxide/Mg Hydroxide (Magnesium Hydrox/Alum Hydrox 30 Ml Oral.Susp) 30 ml PO Q6H PRN PRN Reason: Heartburn/Nausea Clonazepam (Clonazepam 0.5 Mg Tablet) 0.5 mg PO DAILY PRN PRN Reason: Anxiety Last Admin: 03/17/23 18:17 Dose: 0.5 mg Ergocalciferol (Ergocalciferol (Vitamin D2) 1,250 Mcg Capsule) 1,250 mcg PO Q7D [facility] Hydroxyzine HCl (Hydroxyzine Hcl 25 Mg Tablet) 25 mg PO Q6H PRN PRN Reason: Anxiety Last Admin: 03/17/23 18:17 Dose: 25 mg Lamotrigine (Lamotrigine 100 Mg Tablet) 200 mg PO BID [facility] Last Admin: 03/21/23 08:55 Dose: 200 mg Lorazepam (Lorazepam 1 Mg Tablet) 1 mg PO TID PRN PRN Reason: nausea (prodrom to seizure) Last Admin: 03/19/23 21:24 Dose: 1 mg Magnesium Hydroxide (Milk Of Magnesia 30 Ml Oral.Susp) 30 ml PO DAILY PRN PRN Reason: Constipation Multivitamins/Vitamin C (Multivitamin Tablet) 1 tab PO DAILY [facility] Last Admin: 03/21/23 08:55 Dose: 1 tab Nicotine Polacrilex (Nicotine Polacrilex 2 Mg Gum) 4 mg BUCCAL Q2H PRN PRN Reason: Nicotine Cravings Omeprazole (Omeprazole 20 Mg Capsule.Dr) 20 mg PO DAILY@0630 [facility] Last Admin: 03/21/23 06:13 Dose: 20 mg Risperidone (Risperidone 3 Mg Tablet) 3 mg PO BEDTIME [facility] Last Admin: 03/20/23 21:51 Dose: 3 mg Risperidone (Risperidone 1 Mg Tablet) 1 mg PO DAILY [facility] Last Admin: 03/21/23 08:55 Dose: 1 mg Trazodone HCl (Trazodone Hcl 50 Mg Tablet) 50 mg PO BEDTIME MRX1 PRN PRN Reason: Insomnia Zonisamide (Zonisamide 100 Mg Capsule) 400 mg PO DAILY [facility] Last Admin: 03/21/23 08:55 Dose: 400 mg Allergies Allergies Allergy/AdvReac Type Severity Reaction Status Date / Time folic acid Allergy Unknown Verified 03/15/23 16:35 ibuprofen Allergy Unknown Verified 03/15/23 16:35 loratadine Allergy Unknown Verified 03/15/23 16:35 phenytoin Allergy Unknown Verified 03/15/23 16:35 Assessment & Plan Assessment & Plan (1) Medical clearance for psychiatric admission: Status: Acute Code(s): Z00.8 - Encounter for other general examination Plan Pt is a 38-year-old female with a PMH significant for?seizure disorder, anxiety, depression, and bipolar disorder who is admitted to psychiatry unit for increasing paranoia and appearing withdrawn. Patient presented accompanied by her family report she has been hearing voices, responding to internal stimuli, and been noncompliant with her medications. Medical consult for admission H&P. -grandmal - 03/17/23- Continue to gather collateral. At this time, continue current regime and plan of care. 03/18/23- Consults with parents, neurologist, Dr. Mishra -Neuro consult -Labs-valproate, lamictal, ammonia 25 (13-55) -EEG -CAT -Decrease Lamictal to 200 mg bid (since maybe lamictal-toxic; lamictal encephalopathy) -Zonegran 400 mg daily -DC Depakote 03/19 -better behavioral control today -patient reported feeling nauseous, with mild stomach discomfort and says she felt dizzy. She says she has not had a bowel movement in several days. Did not want any medication to help with this but said she will eventually have a BM on her own. Patient has been drinking fluids. Vitals stable -Mother reports that patient complaint of headache and nausea is usually prodrome to pending seizure. -Circular Shear Operator discussed case with Dr. Mishra who agreed with using Ativan as a p.r.n. if concern for pending seizure. Continues to recommend keeping Depakote discontinued as a Depakote encephalopathy can resolve very quickly once Depakote is discontinued, even if the levels remained therapeutic. Also not to go up on Lamictal given possible Lamictal toxicity as level is still pending; recommends to not at any additional anti epileptics or increase existing ones. 03/20 Continue current treatment plan; no seizures; sleeping through the night Plan: Discontinued Depakote 750mg, last dose on 03/18; level drawn today on 03/19 and WNL at 82 Continue Zonegran 400 mg daily Continue Lamictal 200 mg b.i.d. (recently decreased; concern for possibly being lamictal-toxic; lamictal encephalopathy)) Although patient does have seizure disorder, discussed with Bharat and plan remains to dc depakote rather than taper (per dr. Mishra, [facility] neurology) 03/21/23- Discharge 03/22. Patient educated on: medication risk/benefits and therapeutic strategies Informed Consent: understands and further education needed Reason for continued inpatient stay Substantial Risk for: stable for discharge and med/psych decompensation Time Spent With Patient Time: Total time managing care of this patient today ____ minutes.
[2023-03-21 17:05] VITALS: BP 138/78; PULSE 98; RESP 16; TEMP 36.9; O2SAT 96
[2023-03-21] MEDS: risperiDONE 3 MG TABLET PO (22:15)
[2023-03-22] MEDS: hydrOXYzine HCL 25 MG TABLET PO ×2 (03:59→13:11)
[2023-03-22] MEDS: Acetaminophen 325 MG TABLET 650 MG PO (03:59)
--- NOTE | 2023-03-22 06:17 | PC.NURSE ---
PT HAS BEEN PACING THE HALLWAY. APPEARS PARANOID AND GUARDED. PT STATED TO STAFF I NEED TO GET OUTSIDE OF HERE, MY SON IS AT THE WINDOW . PT WAS STARING OUT THE DOOR, LINGERING AROUND THE EXITS. PT ATTEMPTED TO PUSH ON THE EXIT DOORS MULTIPLE TIMES AND WALKED TOWARDS THEM EACH TIME THEY WERE BEING OPENED BY STAFF. PT NEEDED FREQUENT REDIRECTION. PT WOKE UP ROOMMATE TWICE DURING THE NIGHT. PROVIDER MADE AWARE OF THIS BEHAVIOR.
[2023-03-22 08:10] VITALS: BP 115/61; PULSE 117; RESP 18; TEMP 36.6; O2SAT 98
[2023-03-22] MEDS: Multivitamin TABLET 1 TAB PO (08:28)
[2023-03-22] MEDS: risperiDONE 1 MG TABLET PO (08:28)
[2023-03-22] MEDS: Omeprazole 20 MG CAPSULE.DR PO (08:29)
[2023-03-22] MEDS: lamoTRIgine 100 MG TABLET 200 MG PO ×2 (08:29→19:57)
[2023-03-22] MEDS: Zonisamide 100 MG CAPSULE 400 MG PO (08:29)
[2023-03-22] MEDS: Ergocalciferol (Vitamin D2) 1,250 MCG CAPSULE 1250 MCG PO (10:53)
[2023-03-22] MEDS: HaloperidoL 5 MG TABLET PO ×2 (10:53→15:19)
[2023-03-22] MEDS: clonazePAM 0.5 MG TABLET PO (13:11)
[2023-03-22] MEDS: LORazepam 1 MG TABLET 2 MG PO ×2 (15:19→18:09)
--- NOTE | 2023-03-22 15:21 | PC.NURSE ---
Pt was increasing in agitation, inconsolable and entering other patients rooms. She accepted PO medication with father around.
--- NOTE | 2023-03-22 16:05 | P.PNPSI_ITS ---
Subjective Subjective Date of Service: 03/22/23 Reason For Visit: Schizophrenia Subjective Notes: Conditional Voluntary Healthcare Proxy: No Guardianship: No Medical Problems Affecting Mental Status: No Interim History: Notified by team early this a.m. that pt had a difficult night with insomnia, paranoia, standing by the front door, searching for her son with angst, fear and some agitation along with delusional content. Today, intermittent agitation. PRN Haldol without much relief or efficacy. Lorazepam helpful. Intermittent screaming, looking for her son. Believes she sees him in the reflection in the window. Met with parents and decided to hold on discharge given these symptoms. Both agree. Mother reports pt's son has been missing for ~14 hours, not in contact with family at all. Police are involved. Pt's mother is worried that pt may sense that something has happened to him and is presenting this way due to this distress. She will contact the unit if there are any updates. This information was NOT shared with pt due to her level of distress at this time. Medication Compliance: Intermittent Side effects from medications: No Attending Groups: No Review of Systems Acute medical concerns: No Medical Review of Systems: unchanged Review of Systems Review of Systems Yes Unobtainable due to mental status Mental Status Exam Mental Status Exam Patient Appearance: Disheveled Patient Orientation: Person and Place Level of Consciousness: Alert Patient Behavior: Guarded, Talkative and Good Eye Contact Mood Description: Withdrawn and Labile Affect Description: Labile Patient Cognition Impaired: Yes Ability to Follow Directions: Fair Speech Pattern: Perseverating, Spontaneous Speech, Soft-Spoken, Loud and Delayed Memory Description: Remote Impaired and Episodic Impaired Hallucinations: Auditory Delusions: Present Thought Process: Distracted and Rumination Thought Content: positive for Flight of Ideas, positive for Circumstantial, positive for Perseveration, positive for Preoccupation, positive for Thought Blocking and positive for Tangential Depressive Symptoms: Increased Anxiety, Insomnia, Difficulty Sleeping, Unhappiness, Thoughts of /Suicide (denies) and Difficulty Concentrating Abnormal Motor Activity Signs and Symptoms: Agitation Judgement: Poor Diagnostics Vital Signs (24Hr): Vital Signs - 24 hr 03/21/23 17:05 03/22/23 08:10 Temperature 98.4 F 97.9 F Pulse Rate 98 117 H Respiratory Rate 16 18 Blood Pressure 138/78 115/61 Pulse Oximetry 96 98 Oxygen Delivery Method Room Air Room Air BMI result Body Mass Index 39.2 Labs 03/16/23 09:12 03/16/23 09:12 Imaging Radiology Impressions: ITS Impressions Head CT 03/18/23 14:55 IMPRESSION: No acute intracranial pathology. Medications Medications Current Medications Acetaminophen (Acetaminophen 325 Mg Tablet) 650 mg PO Q6H PRN PRN Reason: Headache/Pain Mild Scale (1-3) Last Admin: 03/22/23 03:59 Dose: 650 mg Al Hydroxide/Mg Hydroxide (Magnesium Hydrox/Alum Hydrox 30 Ml Oral.Susp) 30 ml PO Q6H PRN PRN Reason: Heartburn/Nausea Clonazepam (Clonazepam 0.5 Mg Tablet) 0.5 mg PO DAILY PRN PRN Reason: Anxiety Last Admin: 03/22/23 13:11 Dose: 0.5 mg Ergocalciferol (Ergocalciferol (Vitamin D2) 1,250 Mcg Capsule) 1,250 mcg PO Q7D [facility] Last Admin: 03/22/23 10:53 Dose: 1,250 mcg Hydroxyzine HCl (Hydroxyzine Hcl 25 Mg Tablet) 25 mg PO Q6H PRN PRN Reason: Anxiety Last Admin: 03/22/23 13:11 Dose: 25 mg Lamotrigine (Lamotrigine 100 Mg Tablet) 200 mg PO BID [facility] Last Admin: 03/22/23 08:29 Dose: 200 mg Lorazepam (Lorazepam 1 Mg Tablet) 1 mg PO TID PRN PRN Reason: nausea (prodrom to seizure) Last Admin: 03/19/23 21:24 Dose: 1 mg Magnesium Hydroxide (Milk Of Magnesia 30 Ml Oral.Susp) 30 ml PO DAILY PRN PRN Reason: Constipation Multivitamins/Vitamin C (Multivitamin Tablet) 1 tab PO DAILY [facility] Last Admin: 03/22/23 08:28 Dose: 1 tab Nicotine Polacrilex (Nicotine Polacrilex 2 Mg Gum) 4 mg BUCCAL Q2H PRN PRN Reason: Nicotine Cravings Omeprazole (Omeprazole 20 Mg Capsule.Dr) 20 mg PO DAILY@0630 [facility] Last Admin: 03/22/23 08:29 Dose: 20 mg Risperidone (Risperidone 3 Mg Tablet) 3 mg PO BEDTIME [facility] Last Admin: 03/21/23 22:15 Dose: 3 mg Risperidone (Risperidone 1 Mg Tablet) 1 mg PO DAILY [facility] Last Admin: 03/22/23 08:28 Dose: 1 mg Trazodone HCl (Trazodone Hcl 50 Mg Tablet) 50 mg PO BEDTIME MRX1 PRN PRN Reason: Insomnia Zonisamide (Zonisamide 100 Mg Capsule) 400 mg PO DAILY [facility] Last Admin: 03/22/23 08:29 Dose: 400 mg Allergies Allergies Allergy/AdvReac Type Severity Reaction Status Date / Time folic acid Allergy Unknown Verified 03/15/23 16:35 ibuprofen Allergy Unknown Verified 03/15/23 16:35 loratadine Allergy Unknown Verified 03/15/23 16:35 phenytoin Allergy Unknown Verified 03/15/23 16:35 divalproex sodium AdvReac Severe psychosis, Verified 03/21/23 18:32 [From Depakote] violence Assessment & Plan Assessment & Plan (1) Medical clearance for psychiatric admission: Status: Acute Code(s): Z00.8 - Encounter for other general examination Plan Pt is a 38-year-old female with a PMH significant for?seizure disorder, anxiety, depression, and bipolar disorder who is admitted to psychiatry unit for increasing paranoia and appearing withdrawn. Patient presented accompanied by her family report she has been hearing voices, responding to internal stimuli, and been noncompliant with her medications. Medical consult for admission H&P. -grandmal - 03/17/23- Continue to gather collateral. At this time, continue current regime and plan of care. 03/18/23- Consults with parents, neurologist, Dr. Mishra -Neuro consult -Labs-valproate, lamictal, ammonia 25 (13-55) -EEG -CAT -Decrease Lamictal to 200 mg bid (since maybe lamictal-toxic; lamictal encephalopathy) -Zonegran 400 mg daily -DC Depakote 03/19 -better behavioral control today -patient reported feeling nauseous, with mild stomach discomfort and says she felt dizzy. She says she has not had a bowel movement in several days. Did not want any medication to help with this but said she will eventually have a BM on her own. Patient has been drinking fluids. Vitals stable -Mother reports that patient complaint of headache and nausea is usually prodrome to pending seizure. -Animal Sitter discussed case with Dr. Mishra who agreed with using Ativan as a p.r.n. if concern for pending seizure. Continues to recommend keeping Depakote discontinued as a Depakote encephalopathy can resolve very quickly once Depakote is discontinued, even if the levels remained therapeutic. Also not to go up on Lamictal given possible Lamictal toxicity as level is still pending; recommends to not at any additional anti epileptics or increase existing ones. 03/20 Continue current treatment plan; no seizures; sleeping through the night Plan: Discontinued Depakote 750mg, last dose on 03/18; level drawn today on 03/19 and WNL at 82 Continue Zonegran 400 mg daily Continue Lamictal 200 mg b.i.d. (recently decreased; concern for possibly being lamictal-toxic; lamictal encephalopathy)) Although patient does have seizure disorder, discussed with Bharat and plan remains to dc depakote rather than taper (per dr. Mishra, [facility] neurology) 03/21/23- Discharge 03/22. 03/22/23- Discharge is postponed as pt has decompensated over night with an increase in symptoms of psychosis, agitation. Haldol trial not too effective. Lorazepam more effective. Continue Risperdal, Lorazepam prn. Informed Consent: does not understand Reason for continued inpatient stay Substantial Risk for: med/psych decompensation Time Spent With Patient Time: Total time managing care of this patient today ____ minutes.
[2023-03-22 18:00] VITALS: BP 121/79; PULSE 111; RESP 18
--- NOTE | 2023-03-22 18:25 | PC.NURSE ---
Patient continued to try to open different doors on the unit. Pt resistive to care, said I'm fine. Dr. Bradford notified and prn Ativan 2 mg po now was ordered. Patient accepted prn but is still standing in the hallway, across from the unit exit door. Prn Zyprexa was also ordered but patient declined. Security was on the unit to help monitor patient until she took the prn.
[2023-03-22] MEDS: risperiDONE 3 MG TABLET PO (19:56)
[2023-03-23] MEDS: Omeprazole 20 MG CAPSULE.DR PO (06:19)
[2023-03-23] MEDS: lamoTRIgine 100 MG TABLET 200 MG PO ×2 (08:31→19:59)
[2023-03-23] MEDS: risperiDONE 1 MG TABLET PO (08:31)
[2023-03-23] MEDS: Zonisamide 100 MG CAPSULE 400 MG PO (08:31)
[2023-03-23 09:29] VITALS: BP 138/85; PULSE 110; RESP 18; TEMP 36.1; O2SAT 99
[2023-03-23 10:18] LABS: Lamotrigine Lamictal 27.1 mcg/mL (2.5-15.0)
[2023-03-23 16:05] VITALS: BP 128/84; PULSE 115; RESP 16; TEMP 36.4; O2SAT 100
--- NOTE | 2023-03-23 16:47 | HO.PSYCHPN ---
Subjective Subjective Date of Service: 03/23/23 Reason For Visit: Schizophrenia Subjective Notes: Conditional Voluntary Healthcare Proxy: No Guardianship: No Medical Problems Affecting Mental Status: No Interim History: Pt calmer today and more isolative. At times, responds to internal stimuli, possible thought blocking vs dissociation as well. Visited with her father. This evening, Lamictal level returned at 27.1 from last week (range 2.5-15). This was drawn before dose was decreased from 300 mg bid to 200 mg bid. Will draw another level on 03/24 and hold dose to 200 mg bid. No word from pt's mother on if her son has been located. Pt has not been informed that he was missing due to her fragile state. Medication Compliance: Yes Side effects from medications: Yes (Lamictal level is high) Attending Groups: No Review of Systems Acute medical concerns: No Medical Review of Systems: unchanged Review of Systems Review of Systems Yes Unobtainable due to mental status Mental Status Exam Mental Status Exam Patient Appearance: Disheveled Patient Orientation: Person and Place Level of Consciousness: Alert Patient Behavior: Talkative and Good Eye Contact Mood Description: Withdrawn Affect Description: Withdrawn Patient Cognition Impaired: Yes Ability to Follow Directions: Fair Speech Pattern: Perseverating, Spontaneous Speech and Soft-Spoken Memory Description: Remote Impaired and Episodic Impaired Hallucinations: Auditory Delusions: Present Perceptual Disturbances: Depersonalization and Derealization Thought Process: Distracted and Rumination Thought Content: positive for Circumstantial, positive for Perseveration, positive for Preoccupation and positive for Thought Blocking Depressive Symptoms: Increased Anxiety, Unhappiness, Thoughts of /Suicide (denies) and Difficulty Concentrating Judgement: Poor Diagnostics Vital Signs (24Hr): Vital Signs - 24 hr 03/22/23 18:00 03/23/23 09:29 03/23/23 16:05 Temperature 97.0 F 97.5 F Pulse Rate 111 H 110 H 115 H Respiratory Rate 18 18 16 Blood Pressure 121/79 138/85 128/84 Pulse Oximetry 99 100 Oxygen Delivery Method Room Air Room Air BMI result Body Mass Index 39.2 Labs 03/16/23 09:12 03/16/23 09:12 Labs: Laboratory Results - last 48 hr 03/18/23 13:18 Lamotrigine 27.1 H Imaging Radiology Impressions: ITS Impressions Head CT 03/18/23 14:55 IMPRESSION: No acute intracranial pathology. Medications Medications Current Medications Acetaminophen (Acetaminophen 325 Mg Tablet) 650 mg PO Q6H PRN PRN Reason: Headache/Pain Mild Scale (1-3) Last Admin: 03/22/23 03:59 Dose: 650 mg Al Hydroxide/Mg Hydroxide (Magnesium Hydrox/Alum Hydrox 30 Ml Oral.Susp) 30 ml PO Q6H PRN PRN Reason: Heartburn/Nausea Clonazepam (Clonazepam 0.5 Mg Tablet) 0.5 mg PO DAILY PRN PRN Reason: Anxiety Last Admin: 03/22/23 13:11 Dose: 0.5 mg Ergocalciferol (Ergocalciferol (Vitamin D2) 1,250 Mcg Capsule) 1,250 mcg PO Q7D [facility] Last Admin: 03/22/23 10:53 Dose: 1,250 mcg Hydroxyzine HCl (Hydroxyzine Hcl 25 Mg Tablet) 25 mg PO Q6H PRN PRN Reason: Anxiety Last Admin: 03/22/23 13:11 Dose: 25 mg Lamotrigine (Lamotrigine 100 Mg Tablet) 200 mg PO BID [facility] Last Admin: 03/23/23 08:31 Dose: 200 mg Lorazepam (Lorazepam 1 Mg Tablet) 1 mg PO TID PRN PRN Reason: nausea (prodrom to seizure) Last Admin: 03/19/23 21:24 Dose: 1 mg Magnesium Hydroxide (Milk Of Magnesia 30 Ml Oral.Susp) 30 ml PO DAILY PRN PRN Reason: Constipation Multivitamins/Vitamin C (Multivitamin Tablet) 1 tab PO DAILY [facility] Last Admin: 03/23/23 08:35 Dose: Not Given Nicotine Polacrilex (Nicotine Polacrilex 2 Mg Gum) 4 mg BUCCAL Q2H PRN PRN Reason: Nicotine Cravings Olanzapine (Olanzapine 5 Mg Tablet) 5 mg PO TID PRN PRN Reason: agitation Omeprazole (Omeprazole 20 Mg Capsule.Dr) 20 mg PO DAILY@0630 [facility] Last Admin: 03/23/23 06:19 Dose: 20 mg Risperidone (Risperidone 3 Mg Tablet) 3 mg PO BEDTIME [facility] Last Admin: 03/22/23 19:56 Dose: 3 mg Risperidone (Risperidone 1 Mg Tablet) 1 mg PO DAILY [facility] Last Admin: 03/23/23 08:31 Dose: 1 mg Trazodone HCl (Trazodone Hcl 50 Mg Tablet) 50 mg PO BEDTIME MRX1 PRN PRN Reason: Insomnia Zonisamide (Zonisamide 100 Mg Capsule) 400 mg PO DAILY [facility] Last Admin: 03/23/23 08:31 Dose: 400 mg Allergies Allergies Allergy/AdvReac Type Severity Reaction Status Date / Time folic acid Allergy Unknown Verified 03/15/23 16:35 ibuprofen Allergy Unknown Verified 03/15/23 16:35 loratadine Allergy Unknown Verified 03/15/23 16:35 phenytoin Allergy Unknown Verified 03/15/23 16:35 divalproex sodium AdvReac Severe psychosis, Verified 03/21/23 18:32 [From Depakote] violence Assessment & Plan Assessment & Plan (1) Medical clearance for psychiatric admission: Status: Acute Code(s): Z00.8 - Encounter for other general examination Plan Pt is a 38-year-old female with a PMH significant for?seizure disorder, anxiety, depression, and bipolar disorder who is admitted to psychiatry unit for increasing paranoia and appearing withdrawn. Patient presented accompanied by her family report she has been hearing voices, responding to internal stimuli, and been noncompliant with her medications. Medical consult for admission H&P. -grandmal - 03/17/23- Continue to gather collateral. At this time, continue current regime and plan of care. 03/18/23- Consults with parents, neurologist, Dr. Mishra -Neuro consult -Labs-valproate, lamictal, ammonia 25 (13-55) -EEG -CAT -Decrease Lamictal to 200 mg bid (since maybe lamictal-toxic; lamictal encephalopathy) -Zonegran 400 mg daily -DC Depakote 03/19 -better behavioral control today -patient reported feeling nauseous, with mild stomach discomfort and says she felt dizzy. She says she has not had a bowel movement in several days. Did not want any medication to help with this but said she will eventually have a BM on her own. Patient has been drinking fluids. Vitals stable -Mother reports that patient complaint of headache and nausea is usually prodrome to pending seizure. -Manager Regional Sales discussed case with Dr. Mishra who agreed with using Ativan as a p.r.n. if concern for pending seizure. Continues to recommend keeping Depakote discontinued as a Depakote encephalopathy can resolve very quickly once Depakote is discontinued, even if the levels remained therapeutic. Also not to go up on Lamictal given possible Lamictal toxicity as level is still pending; recommends to not at any additional anti epileptics or increase existing ones. 03/20 Continue current treatment plan; no seizures; sleeping through the night Plan: Discontinued Depakote 750mg, last dose on 03/18; level drawn today on 03/19 and WNL at 82 Continue Zonegran 400 mg daily Continue Lamictal 200 mg b.i.d. (recently decreased; concern for possibly being lamictal-toxic; lamictal encephalopathy)) Although patient does have seizure disorder, discussed with Bharat and plan remains to dc depakote rather than taper (per dr. Mishra, [facility] neurology) 03/21/23- Discharge 03/22. 03/22/23- Discharge is postponed as pt has decompensated over night with an increase in symptoms of psychosis, agitation. Haldol trial not too effective. Lorazepam more effective. Continue Risperdal, Lorazepam prn. 03/23/23- Lamictal level 03/24 Increase a.m. Risperdal to 2 mg. Continue HS Risperdal Informed Consent: further education needed Reason for continued inpatient stay Substantial Risk for: med/psych decompensation Time Spent With Patient Time: Total time managing care of this patient today ____ minutes.
[2023-03-23] MEDS: risperiDONE 3 MG TABLET PO (20:00)
[2023-03-24] MEDS: Omeprazole 20 MG CAPSULE.DR PO (06:08)
[2023-03-24] MEDS: lamoTRIgine 100 MG TABLET 200 MG PO ×2 (08:22→20:29)
[2023-03-24] MEDS: Zonisamide 100 MG CAPSULE 400 MG PO (08:23)
[2023-03-24] MEDS: Multivitamin TABLET 1 TAB PO (08:23)
[2023-03-24] MEDS: risperiDONE 2 MG TABLET PO (08:23)
[2023-03-24 08:40] VITALS: BP 121/84; PULSE 110; RESP 18; TEMP 36.4; O2SAT 98
--- NOTE | 2023-03-24 12:28 | HO.PSYCHPN ---
Subjective Subjective Date of Service: 03/24/23 Reason For Visit: Schizophrenia Interim History: Met with patient; discussed with team Patient lying in bed, awake and alert. Polite and says she is good and denies any complaints or requests; however turns over and further, difficult with which to engage. Remains internally preoccupied, however no behavioral incidents Mental Status Exam Mental Status Exam Patient Appearance: Disheveled Patient Orientation: Person and Place Level of Consciousness: Alert Patient Behavior: Talkative and Good Eye Contact Mood Description: Withdrawn Affect Description: Withdrawn Patient Cognition Impaired: Yes Ability to Follow Directions: Fair Speech Pattern: Perseverating, Spontaneous Speech and Soft-Spoken Memory Description: Remote Impaired and Episodic Impaired Hallucinations: Auditory Delusions: Present Perceptual Disturbances: Depersonalization and Derealization Thought Process: Distracted and Rumination Thought Content: positive for Circumstantial, positive for Perseveration, positive for Preoccupation and positive for Thought Blocking Depressive Symptoms: Increased Anxiety, Unhappiness, Thoughts of /Suicide (denies) and Difficulty Concentrating Judgement: Poor Diagnostics Vital Signs (24Hr): Vital Signs - 24 hr 03/23/23 16:05 03/24/23 08:40 Temperature 97.5 F 97.6 F Pulse Rate 115 H 110 H Respiratory Rate 16 18 Blood Pressure 128/84 121/84 Pulse Oximetry 100 98 Oxygen Delivery Method Room Air Room Air BMI result Body Mass Index 39.2 Labs 03/16/23 09:12 03/16/23 09:12 Labs: Laboratory Results - last 48 hr 03/18/23 13:18 Lamotrigine 27.1 H Imaging Radiology Impressions: ITS Impressions Head CT 03/18/23 14:55 IMPRESSION: No acute intracranial pathology. Medications Medications Current Medications Acetaminophen (Acetaminophen 325 Mg Tablet) 650 mg PO Q6H PRN PRN Reason: Headache/Pain Mild Scale (1-3) Last Admin: 03/22/23 03:59 Dose: 650 mg Al Hydroxide/Mg Hydroxide (Magnesium Hydrox/Alum Hydrox 30 Ml Oral.Susp) 30 ml PO Q6H PRN PRN Reason: Heartburn/Nausea Clonazepam (Clonazepam 0.5 Mg Tablet) 0.5 mg PO DAILY PRN PRN Reason: Anxiety Last Admin: 03/22/23 13:11 Dose: 0.5 mg Ergocalciferol (Ergocalciferol (Vitamin D2) 1,250 Mcg Capsule) 1,250 mcg PO Q7D [facility] Last Admin: 03/22/23 10:53 Dose: 1,250 mcg Hydroxyzine HCl (Hydroxyzine Hcl 25 Mg Tablet) 25 mg PO Q6H PRN PRN Reason: Anxiety Last Admin: 03/22/23 13:11 Dose: 25 mg Lamotrigine (Lamotrigine 100 Mg Tablet) 200 mg PO BID [facility] Last Admin: 03/24/23 08:22 Dose: 200 mg Lorazepam (Lorazepam 1 Mg Tablet) 1 mg PO TID PRN PRN Reason: nausea (prodrom to seizure) Last Admin: 03/19/23 21:24 Dose: 1 mg Magnesium Hydroxide (Milk Of Magnesia 30 Ml Oral.Susp) 30 ml PO DAILY PRN PRN Reason: Constipation Multivitamins/Vitamin C (Multivitamin Tablet) 1 tab PO DAILY [facility] Last Admin: 03/24/23 08:23 Dose: 1 tab Nicotine Polacrilex (Nicotine Polacrilex 2 Mg Gum) 4 mg BUCCAL Q2H PRN PRN Reason: Nicotine Cravings Olanzapine (Olanzapine 5 Mg Tablet) 5 mg PO TID PRN PRN Reason: agitation Omeprazole (Omeprazole 20 Mg Capsule.Dr) 20 mg PO DAILY@0630 [facility] Last Admin: 03/24/23 06:08 Dose: 20 mg Risperidone (Risperidone 3 Mg Tablet) 3 mg PO BEDTIME [facility] Last Admin: 03/23/23 20:00 Dose: 3 mg Risperidone (Risperidone 2 Mg Tablet) 2 mg PO DAILY [facility] Last Admin: 03/24/23 08:23 Dose: 2 mg Trazodone HCl (Trazodone Hcl 50 Mg Tablet) 50 mg PO BEDTIME MRX1 PRN PRN Reason: Insomnia Zonisamide (Zonisamide 100 Mg Capsule) 400 mg PO DAILY [facility] Last Admin: 03/24/23 08:23 Dose: 400 mg Allergies Allergies Allergy/AdvReac Type Severity Reaction Status Date / Time folic acid Allergy Unknown Verified 03/15/23 16:35 ibuprofen Allergy Unknown Verified 03/15/23 16:35 loratadine Allergy Unknown Verified 03/15/23 16:35 phenytoin Allergy Unknown Verified 03/15/23 16:35 divalproex sodium AdvReac Severe psychosis, Verified 03/21/23 18:32 [[facility]] violence Assessment & Plan Assessment & Plan (1) Medical clearance for psychiatric admission: Status: Acute Code(s): Z00.8 - Encounter for other general examination Plan Pt is a 38-year-old female with a PMH significant for?seizure disorder, anxiety, depression, and bipolar disorder who is admitted to psychiatry unit for increasing paranoia and appearing withdrawn. Patient presented accompanied by her family report she has been hearing voices, responding to internal stimuli, and been noncompliant with her medications. Medical consult for admission H&P. -grandmal - 03/17/23- Continue to gather collateral. At this time, continue current regime and plan of care. 03/18/23- Consults with parents, neurologist, Dr. Mishra -Neuro consult -Labs-valproate, lamictal, ammonia 25 (13-55) -EEG -CAT -Decrease Lamictal to 200 mg bid (since maybe lamictal-toxic; lamictal encephalopathy) -Zonegran 400 mg daily -DC Depakote 03/19 -better behavioral control today -patient reported feeling nauseous, with mild stomach discomfort and says she felt dizzy. She says she has not had a bowel movement in several days. Did not want any medication to help with this but said she will eventually have a BM on her own. Patient has been drinking fluids. Vitals stable -Mother reports that patient complaint of headache and nausea is usually prodrome to pending seizure. -Ep Technologist discussed case with Dr. Mishra who agreed with using Ativan as a p.r.n. if concern for pending seizure. Continues to recommend keeping Depakote discontinued as a Depakote encephalopathy can resolve very quickly once Depakote is discontinued, even if the levels remained therapeutic. Also not to go up on Lamictal given possible Lamictal toxicity as level is still pending; recommends to not at any additional anti epileptics or increase existing ones. 03/20 Continue current treatment plan; no seizures; sleeping through the night Plan: Discontinued Depakote 750mg, last dose on 03/18; level drawn today on 03/19 and WNL at 82 Continue Zonegran 400 mg daily Continue Lamictal 200 mg b.i.d. (recently decreased; concern for possibly being lamictal-toxic; lamictal encephalopathy)) Although patient does have seizure disorder, discussed with Bharat and plan remains to dc depakote rather than taper (per dr. Mishra, [facility] neurology) 03/21/23- Discharge 03/22. 03/22/23- Discharge is postponed as pt has decompensated over night with an increase in symptoms of psychosis, agitation. Haldol trial not too effective. Lorazepam more effective. Continue Risperdal, Lorazepam prn. 03/23/23- Lamictal level 03/24 Increase a.m. Risperdal to 2 mg. Continue HS Risperdal 03/24/2023 continue current treatment plan Patient educated on: diagnosis Informed Consent: further education needed Reason for continued inpatient stay Substantial Risk for: inability to function Time Spent With Patient Time: Total time managing care of this patient today ____ minutes.
[2023-03-24 13:39] VITALS: BMI 39.0
[2023-03-24 18:05] VITALS: BP 135/65; PULSE 98; TEMP 36.4; O2SAT 98
[2023-03-24] MEDS: risperiDONE 3 MG TABLET PO (20:29)
[2023-03-25] MEDS: lamoTRIgine 100 MG TABLET 200 MG PO ×2 (09:04→20:25)
[2023-03-25] MEDS: risperiDONE 2 MG TABLET PO (09:04)
[2023-03-25] MEDS: Zonisamide 100 MG CAPSULE 400 MG PO (09:04)
[2023-03-25] MEDS: Acetaminophen 325 MG TABLET 650 MG PO ×2 (09:08→20:24)
[2023-03-25 09:14] VITALS: BP 132/79; PULSE 89; RESP 16; TEMP 36.4; O2SAT 97
--- NOTE | 2023-03-25 16:18 | HO.PSYCHPN ---
Subjective Subjective Date of Service: 03/25/23 Reason For Visit: Schizophrenia Subjective Notes: Conditional Voluntary Healthcare Proxy: No Guardianship: No Medical Problems Affecting Mental Status: No Interim History: Pt reports headache, yet also reports poor intake. Education offered regarding correlation with sx and restriction of food/fluids. Pt discussed wanting to go home. Review of lamictal results, repeat level and what we are looking for to assure she has a stable mental status, stable anticonvulsant levels and is ready to return home. She agreed and asked appropriate questions regarding the issues with Lamictal and Depakote and how this may be prevented in the future. Discussed missing her son and wanting to see him-we discussed that currently, from her mother's report, his priority is his girlfriend. Pt smiled, stating I know, that is just what a 17 yo does. Asked if he could visit and informed her of process of scheduling visits with the team. Medication Compliance: Yes Side effects from medications: No Attending Groups: No Review of Systems Lamictal level is high-decrease last week-second level pending. Medical Review of Systems: unchanged Review of Systems Review of Systems Yes all other systems are reviewed and are negative and Unobtainable due to mental status Mental Status Exam Mental Status Exam Patient Appearance: Disheveled Patient Orientation: Person and Place Level of Consciousness: Alert Patient Behavior: Talkative and Good Eye Contact Mood Description: Withdrawn Affect Description: Withdrawn Patient Cognition Impaired: Yes Ability to Follow Directions: Fair Speech Pattern: Perseverating, Spontaneous Speech and Soft-Spoken Memory Description: Remote Impaired and Episodic Impaired Hallucinations: Auditory Delusions: Present Perceptual Disturbances: Depersonalization and Derealization Thought Process: Distracted and Rumination Thought Content: positive for Circumstantial, positive for Perseveration, positive for Preoccupation and positive for Thought Blocking Depressive Symptoms: Increased Anxiety, Unhappiness, Thoughts of /Suicide (denies) and Difficulty Concentrating Judgement: Poor Diagnostics Vital Signs (24Hr): Vital Signs - 24 hr 03/24/23 18:05 03/25/23 09:14 Temperature 97.6 F 97.5 F Pulse Rate 98 89 Respiratory Rate 16 Blood Pressure 135/65 132/79 Pulse Oximetry 98 97 Oxygen Delivery Method Room Air Room Air BMI result Body Mass Index 39.0 Labs 03/16/23 09:12 03/16/23 09:12 Imaging Radiology Impressions: ITS Impressions Head CT 03/18/23 14:55 IMPRESSION: No acute intracranial pathology. Medications Medications Current Medications Acetaminophen (Acetaminophen 325 Mg Tablet) 650 mg PO Q6H PRN PRN Reason: Headache/Pain Mild Scale (1-3) Last Admin: 03/25/23 09:08 Dose: 650 mg Al Hydroxide/Mg Hydroxide (Magnesium Hydrox/Alum Hydrox 30 Ml Oral.Susp) 30 ml PO Q6H PRN PRN Reason: Heartburn/Nausea Clonazepam (Clonazepam 0.5 Mg Tablet) 0.5 mg PO DAILY PRN PRN Reason: Anxiety Last Admin: 03/22/23 13:11 Dose: 0.5 mg Ergocalciferol (Ergocalciferol (Vitamin D2) 1,250 Mcg Capsule) 1,250 mcg PO Q7D [facility] Last Admin: 03/22/23 10:53 Dose: 1,250 mcg Hydroxyzine HCl (Hydroxyzine Hcl 25 Mg Tablet) 25 mg PO Q6H PRN PRN Reason: Anxiety Last Admin: 03/22/23 13:11 Dose: 25 mg Lamotrigine (Lamotrigine 100 Mg Tablet) 200 mg PO BID [facility] Last Admin: 03/25/23 09:04 Dose: 200 mg Lorazepam (Lorazepam 1 Mg Tablet) 1 mg PO TID PRN PRN Reason: nausea (prodrom to seizure) Last Admin: 03/19/23 21:24 Dose: 1 mg Magnesium Hydroxide (Milk Of Magnesia 30 Ml Oral.Susp) 30 ml PO DAILY PRN PRN Reason: Constipation Multivitamins/Vitamin C (Multivitamin Tablet) 1 tab PO DAILY [facility] Last Admin: 03/25/23 09:04 Dose: 1 tab Nicotine Polacrilex (Nicotine Polacrilex 2 Mg Gum) 4 mg BUCCAL Q2H PRN PRN Reason: Nicotine Cravings Olanzapine (Olanzapine 5 Mg Tablet) 5 mg PO TID PRN PRN Reason: agitation Omeprazole (Omeprazole 20 Mg Capsule.Dr) 20 mg PO DAILY@0630 [facility] Last Admin: 03/25/23 06:18 Dose: 20 mg Risperidone (Risperidone 3 Mg Tablet) 3 mg PO BEDTIME [facility] Last Admin: 03/24/23 20:29 Dose: 3 mg Risperidone (Risperidone 2 Mg Tablet) 2 mg PO DAILY [facility] Last Admin: 03/25/23 09:04 Dose: 2 mg Trazodone HCl (Trazodone Hcl 50 Mg Tablet) 50 mg PO BEDTIME MRX1 PRN PRN Reason: Insomnia Zonisamide (Zonisamide 100 Mg Capsule) 400 mg PO DAILY [facility] Last Admin: 03/25/23 09:04 Dose: 400 mg Allergies Allergies Allergy/AdvReac Type Severity Reaction Status Date / Time folic acid Allergy Unknown Verified 03/15/23 16:35 ibuprofen Allergy Unknown Verified 03/15/23 16:35 loratadine Allergy Unknown Verified 03/15/23 16:35 phenytoin Allergy Unknown Verified 03/15/23 16:35 divalproex sodium AdvReac Severe psychosis, Verified 03/21/23 18:32 [From Depakote] violence Assessment & Plan Assessment & Plan (1) Medical clearance for psychiatric admission: Status: Acute Code(s): Z00.8 - Encounter for other general examination Plan Pt is a 38-year-old female with a PMH significant for?seizure disorder, anxiety, depression, and bipolar disorder who is admitted to psychiatry unit for increasing paranoia and appearing withdrawn. Patient presented accompanied by her family report she has been hearing voices, responding to internal stimuli, and been noncompliant with her medications. Medical consult for admission H&P. -grandmal - 03/17/23- Continue to gather collateral. At this time, continue current regime and plan of care. 03/18/23- Consults with parents, neurologist, Dr. Mishra -Neuro consult -Labs-valproate, lamictal, ammonia 25 (13-55) -EEG -CAT -Decrease Lamictal to 200 mg bid (since maybe lamictal-toxic; lamictal encephalopathy) -Zonegran 400 mg daily -DC Depakote 03/19 -better behavioral control today -patient reported feeling nauseous, with mild stomach discomfort and says she felt dizzy. She says she has not had a bowel movement in several days. Did not want any medication to help with this but said she will eventually have a BM on her own. Patient has been drinking fluids. Vitals stable -Mother reports that patient complaint of headache and nausea is usually prodrome to pending seizure. -Diesel Engine Specialist discussed case with Dr. Mishra who agreed with using Ativan as a p.r.n. if concern for pending seizure. Continues to recommend keeping Depakote discontinued as a Depakote encephalopathy can resolve very quickly once Depakote is discontinued, even if the levels remained therapeutic. Also not to go up on Lamictal given possible Lamictal toxicity as level is still pending; recommends to not at any additional anti epileptics or increase existing ones. 03/20 Continue current treatment plan; no seizures; sleeping through the night Plan: Discontinued Depakote 750mg, last dose on 03/18; level drawn today on 03/19 and WNL at 82 Continue Zonegran 400 mg daily Continue Lamictal 200 mg b.i.d. (recently decreased; concern for possibly being lamictal-toxic; lamictal encephalopathy)) Although patient does have seizure disorder, discussed with Bharat and plan remains to dc depakote rather than taper (per dr. Mishra, [facility] neurology) 03/21/23- Discharge 03/22. 03/22/23- Discharge is postponed as pt has decompensated over night with an increase in symptoms of psychosis, agitation. Haldol trial not too effective. Lorazepam more effective. Continue Risperdal, Lorazepam prn. 03/23/23- Lamictal level 03/24 Increase a.m. Risperdal to 2 mg. Continue HS Risperdal 03/24/2023 continue current treatment plan 03/25/23 Continue current regime and plan of care. Patient educated on: medication risk/benefits and therapeutic strategies Informed Consent: further education needed Reason for continued inpatient stay Substantial Risk for: rapid decompensation Time Spent With Patient Time: Total time managing care of this patient today ____ minutes.
[2023-03-25 16:53] VITALS: BP 128/58; PULSE 97; RESP 16; TEMP 36.2; O2SAT 99
[2023-03-25] MEDS: risperiDONE 3 MG TABLET PO (20:25)
[2023-03-26] MEDS: risperiDONE 2 MG TABLET PO (09:04)
[2023-03-26] MEDS: Omeprazole 20 MG CAPSULE.DR PO (09:04)
[2023-03-26] MEDS: Zonisamide 100 MG CAPSULE 400 MG PO (09:04)
[2023-03-26] MEDS: lamoTRIgine 100 MG TABLET 200 MG PO ×2 (09:04→20:34)
[2023-03-26] MEDS: Multivitamin TABLET 1 TAB PO (09:04)
[2023-03-26 09:14] VITALS: BP 122/65; PULSE 93; RESP 18; TEMP 36.1; O2SAT 98
--- NOTE | 2023-03-26 16:20 | P.PNPSI_ITS ---
Subjective Subjective Date of Service: 03/26/23 Reason For Visit: Schizophrenia Subjective Notes: Conditional Voluntary Healthcare Proxy: No Guardianship: No Medical Problems Affecting Mental Status: No Interim History: met with patient. Discussed with Nursing. No elopement attempts. Some internal preoccupation as per staff. Was eating which has been progress. Very limited engagement with marketing writer today. Was guarded. That being said did state she felt safe. Was reading a book. Denied medication issues. Sleep okay. Medication Compliance: Yes Side effects from medications: No Attending Groups: No Review of Systems Acute medical concerns: No Review of Systems Review of Systems Nothing acute noted Mental Status Exam Mental Status Exam Narrative: in room. Reading a book. Self-care is limited. Guarded. [place]. Reports feeling less depressed. Affect very restricted. No evidence of SI or HI. Reported feeling safe. Some internal preoccupation. Insight and judgment limited Diagnostics Vital Signs (24Hr): Vital Signs - 24 hr 03/25/23 16:53 03/26/23 09:14 Temperature 97.2 F 96.9 F Pulse Rate 97 93 Respiratory Rate 16 18 Blood Pressure 128/58 L 122/65 Pulse Oximetry 99 98 Oxygen Delivery Method Room Air Room Air BMI result Body Mass Index 39.0 Labs 03/16/23 09:12 03/16/23 09:12 Imaging Radiology Impressions: ITS Impressions Head CT 03/18/23 14:55 IMPRESSION: No acute intracranial pathology. Medications Medications Current Medications Acetaminophen (Acetaminophen 325 Mg Tablet) 650 mg PO Q6H PRN PRN Reason: Headache/Pain Mild Scale (1-3) Last Admin: 03/25/23 20:24 Dose: 650 mg Al Hydroxide/Mg Hydroxide (Magnesium Hydrox/Alum Hydrox 30 Ml Oral.Susp) 30 ml PO Q6H PRN PRN Reason: Heartburn/Nausea Clonazepam (Clonazepam 0.5 Mg Tablet) 0.5 mg PO DAILY PRN PRN Reason: Anxiety Last Admin: 03/22/23 13:11 Dose: 0.5 mg Ergocalciferol (Ergocalciferol (Vitamin D2) 1,250 Mcg Capsule) 1,250 mcg PO Q7D [facility] Last Admin: 03/22/23 10:53 Dose: 1,250 mcg Hydroxyzine HCl (Hydroxyzine Hcl 25 Mg Tablet) 25 mg PO Q6H PRN PRN Reason: Anxiety Last Admin: 03/22/23 13:11 Dose: 25 mg Lamotrigine (Lamotrigine 100 Mg Tablet) 200 mg PO BID [facility] Last Admin: 03/26/23 09:04 Dose: 200 mg Lorazepam (Lorazepam 1 Mg Tablet) 1 mg PO TID PRN PRN Reason: nausea (prodrom to seizure) Last Admin: 03/19/23 21:24 Dose: 1 mg Magnesium Hydroxide (Milk Of Magnesia 30 Ml Oral.Susp) 30 ml PO DAILY PRN PRN Reason: Constipation Multivitamins/Vitamin C (Multivitamin Tablet) 1 tab PO DAILY [facility] Last Admin: 03/26/23 09:04 Dose: 1 tab Nicotine Polacrilex (Nicotine Polacrilex 2 Mg Gum) 4 mg BUCCAL Q2H PRN PRN Reason: Nicotine Cravings Olanzapine (Olanzapine 5 Mg Tablet) 5 mg PO TID PRN PRN Reason: agitation Omeprazole (Omeprazole 20 Mg Capsule.Dr) 20 mg PO DAILY@0630 [facility] Last Admin: 03/26/23 09:04 Dose: 20 mg Risperidone (Risperidone 3 Mg Tablet) 3 mg PO BEDTIME [facility] Last Admin: 03/25/23 20:25 Dose: 3 mg Risperidone (Risperidone 2 Mg Tablet) 2 mg PO DAILY [facility] Last Admin: 03/26/23 09:04 Dose: 2 mg Trazodone HCl (Trazodone Hcl 50 Mg Tablet) 50 mg PO BEDTIME MRX1 PRN PRN Reason: Insomnia Zonisamide (Zonisamide 100 Mg Capsule) 400 mg PO DAILY [facility] Last Admin: 03/26/23 09:04 Dose: 400 mg Allergies Allergies Allergy/AdvReac Type Severity Reaction Status Date / Time folic acid Allergy Unknown Verified 03/15/23 16:35 ibuprofen Allergy Unknown Verified 03/15/23 16:35 loratadine Allergy Unknown Verified 03/15/23 16:35 phenytoin Allergy Unknown Verified 03/15/23 16:35 divalproex sodium AdvReac Severe psychosis, Verified 03/21/23 18:32 [From Depakote] violence Assessment & Plan Assessment & Plan (1) Medical clearance for psychiatric admission: Status: Acute Code(s): Z00.8 - Encounter for other general examination Plan Pt is a 38-year-old female with a PMH significant for?seizure disorder, anxiety, depression, and bipolar disorder who is admitted to [facility] psychiatry unit for increasing paranoia and appearing withdrawn. Patient presented accompanied by her family report she has been hearing voices, responding to internal stimuli, and been noncompliant with her medications. Medical consult for admission H&P. -grandmal - 03/17/23- Continue to gather collateral. At this time, continue current regime and plan of care. 03/18/23- Consults with parents, neurologist, Dr. Mishra -Neuro consult -Labs-valproate, lamictal, ammonia 25 (13-55) -EEG -CAT -Decrease Lamictal to 200 mg bid (since maybe lamictal-toxic; lamictal encephalopathy) -Zonegran 400 mg daily -DC Depakote 03/19 -better behavioral control today -patient reported feeling nauseous, with mild stomach discomfort and says she felt dizzy. She says she has not had a bowel movement in several days. Did not want any medication to help with this but said she will eventually have a BM on her own. Patient has been drinking fluids. Vitals stable -Mother reports that patient complaint of headache and nausea is usually prodrome to pending seizure. -Gear Milling Machine Set Up Operator discussed case with Dr. Mishra who agreed with using Ativan as a p.r.n. if concern for pending seizure. Continues to recommend keeping Depakote discontinued as a Depakote encephalopathy can resolve very quickly once Depakote is discontinued, even if the levels remained therapeutic. Also not to go up on Lamictal given possible Lamictal toxicity as level is still pending; recommends to not at any additional anti epileptics or increase existing ones. 03/20 Continue current treatment plan; no seizures; sleeping through the night Plan: Discontinued Depakote 750mg, last dose on 03/18; level drawn today on 03/19 and WNL at 82 Continue Zonegran 400 mg daily Continue Lamictal 200 mg b.i.d. (recently decreased; concern for possibly being lamictal-toxic; lamictal encephalopathy)) Although patient does have seizure disorder, discussed with Bharat and plan remains to dc depakote rather than taper (per dr. Mishra, [facility] neurology) 03/21/23- Discharge 03/22. 03/22/23- Discharge is postponed as pt has decompensated over night with an increase in symptoms of psychosis, agitation. Haldol trial not too effective. Lorazepam more effective. Continue Risperdal, Lorazepam prn. 03/23/23- Lamictal level 03/24 Increase a.m. Risperdal to 2 mg. Continue HS Risperdal 03/24/2023 continue current treatment plan 03/25/23 Continue current regime and plan of care. 03/26/23: no changes to current med plan as some gradual improvement as per staff. Will change to 15 minute checks Reason for continued inpatient stay Substantial Risk for: rapid decompensation Time Spent With Patient Time: Total time managing care of this patient today ____ minutes.
[2023-03-26 18:00] VITALS: BP 118/77; PULSE 96; RESP 18; TEMP 37.1; O2SAT 98
[2023-03-26] MEDS: Acetaminophen 325 MG TABLET 650 MG PO (20:34)
[2023-03-26] MEDS: risperiDONE 3 MG TABLET PO (20:34)
[2023-03-27] MEDS: Acetaminophen 325 MG TABLET 650 MG PO (03:26)
[2023-03-27] MEDS: LORazepam 1 MG TABLET PO ×2 (09:46→16:16)
[2023-03-27 09:47] VITALS: BP 139/67; PULSE 74; RESP 18; TEMP 36; O2SAT 99
[2023-03-27] MEDS: lamoTRIgine 100 MG TABLET 200 MG PO ×2 (10:52→22:30)
[2023-03-27] MEDS: risperiDONE 2 MG TABLET PO (10:52)
[2023-03-27] MEDS: Zonisamide 100 MG CAPSULE 400 MG PO (11:01)
[2023-03-27] MEDS: Omeprazole 20 MG CAPSULE.DR PO (11:03)
[2023-03-27] MEDS: Multivitamin TABLET 1 TAB PO (11:03)
--- NOTE | 2023-03-27 15:33 | HO.PSYCHPN ---
Subjective Subjective Date of Service: 03/27/23 Reason For Visit: Schizophrenia Interim History: Met with patient. Discussed with Nursing. No elopement attempts. Poor sleep. Ambivalent ref meds today. Reports feeling bored, eager for discharge, concerned about her girlfriend and her son, but unable to elaborate on same. Reports she had been feeling nauseous but separate this from a prodromal symptom prior to seizures- not that type of nausea, but unable to elaborate on same. Internal preoccupation and paranoia evident. Denied medication issues. Medication Compliance: Intermittent Side effects from medications: No Attending Groups: No Review of Systems Acute medical concerns: No Review of Systems Review of Systems Nothing acute noted Mental Status Exam Mental Status Exam Narrative: in hallway. Guarded. [place]. Reports feeling less depressed. Affect very restricted. No evidence of SI or HI. Eager for discharge. Reported feeling safe. Some internal preoccupation. Insight and judgment limited Diagnostics Vital Signs (24Hr): Vital Signs - 24 hr 03/26/23 18:00 03/27/23 09:47 Temperature 98.8 F 96.8 F Pulse Rate 96 74 Respiratory Rate 18 18 Blood Pressure 118/77 139/67 Pulse Oximetry 98 99 Oxygen Delivery Method Room Air BMI result Body Mass Index 39.0 Labs 03/16/23 09:12 03/16/23 09:12 Imaging Radiology Impressions: ITS Impressions Head CT 03/18/23 14:55 IMPRESSION: No acute intracranial pathology. Medications Medications Current Medications Acetaminophen (Acetaminophen 325 Mg Tablet) 650 mg PO Q6H PRN PRN Reason: Headache/Pain Mild Scale (1-3) Last Admin: 03/27/23 03:26 Dose: 325 mg Al Hydroxide/Mg Hydroxide (Magnesium Hydrox/Alum Hydrox 30 Ml Oral.Susp) 30 ml PO Q6H PRN PRN Reason: Heartburn/Nausea Clonazepam (Clonazepam 0.5 Mg Tablet) 0.5 mg PO DAILY PRN PRN Reason: Anxiety Last Admin: 03/22/23 13:11 Dose: 0.5 mg Ergocalciferol (Ergocalciferol (Vitamin D2) 1,250 Mcg Capsule) 1,250 mcg PO Q7D MOE Last Admin: 03/22/23 10:53 Dose: 1,250 mcg Hydroxyzine HCl (Hydroxyzine Hcl 25 Mg Tablet) 25 mg PO Q6H PRN PRN Reason: Anxiety Last Admin: 03/22/23 13:11 Dose: 25 mg Lamotrigine (Lamotrigine 100 Mg Tablet) 200 mg PO BID [facility] Last Admin: 03/27/23 10:52 Dose: 200 mg Lorazepam (Lorazepam 1 Mg Tablet) 1 mg PO TID PRN PRN Reason: nausea (prodrom to seizure) Last Admin: 03/27/23 09:46 Dose: 1 mg Magnesium Hydroxide (Milk Of Magnesia 30 Ml Oral.Susp) 30 ml PO DAILY PRN PRN Reason: Constipation Multivitamins/Vitamin C (Multivitamin Tablet) 1 tab PO DAILY [facility] Last Admin: 03/27/23 11:03 Dose: 1 tab Nicotine Polacrilex (Nicotine Polacrilex 2 Mg Gum) 4 mg BUCCAL Q2H PRN PRN Reason: Nicotine Cravings Olanzapine (Olanzapine 5 Mg Tablet) 5 mg PO TID PRN PRN Reason: agitation Omeprazole (Omeprazole 20 Mg Capsule.Dr) 20 mg PO DAILY@0630 [facility] Last Admin: 03/27/23 11:03 Dose: 20 mg Risperidone (Risperidone 3 Mg Tablet) 3 mg PO BEDTIME [facility] Last Admin: 03/26/23 20:34 Dose: 3 mg Risperidone (Risperidone 2 Mg Tablet) 2 mg PO DAILY [facility] Last Admin: 03/27/23 10:52 Dose: 2 mg Trazodone HCl (Trazodone Hcl 50 Mg Tablet) 50 mg PO BEDTIME MRX1 PRN PRN Reason: Insomnia Zonisamide (Zonisamide 100 Mg Capsule) 400 mg PO DAILY [facility] Last Admin: 03/27/23 11:01 Dose: 400 mg Allergies Allergies Allergy/AdvReac Type Severity Reaction Status Date / Time folic acid Allergy Unknown Verified 03/15/23 16:35 ibuprofen Allergy Unknown Verified 03/15/23 16:35 loratadine Allergy Unknown Verified 03/15/23 16:35 phenytoin Allergy Unknown Verified 03/15/23 16:35 divalproex sodium AdvReac Severe psychosis, Verified 03/21/23 18:32 [From Depakote] violence Assessment & Plan Assessment & Plan (1) Medical clearance for psychiatric admission: Status: Acute Code(s): Z00.8 - Encounter for other general examination Plan Pt is a 38-year-old female with a PMH significant for?seizure disorder, anxiety, depression, and bipolar disorder who is admitted to psychiatry unit for increasing paranoia and appearing withdrawn. Patient presented accompanied by her family report she has been hearing voices, responding to internal stimuli, and been noncompliant with her medications. Medical consult for admission H&P. -grandmal - 03/17/23- Continue to gather collateral. At this time, continue current regime and plan of care. 03/18/23- Consults with parents, neurologist, Dr. Mishra -Neuro consult -Labs-valproate, lamictal, ammonia 25 (13-55) -EEG -CAT -Decrease Lamictal to 200 mg bid (since maybe lamictal-toxic; lamictal encephalopathy) -Zonegran 400 mg daily -DC Depakote 03/19 -better behavioral control today -patient reported feeling nauseous, with mild stomach discomfort and says she felt dizzy. She says she has not had a bowel movement in several days. Did not want any medication to help with this but said she will eventually have a BM on her own. Patient has been drinking fluids. Vitals stable -Mother reports that patient complaint of headache and nausea is usually prodrome to pending seizure. -Cement Side Laster discussed case with Dr. Mishra who agreed with using Ativan as a p.r.n. if concern for pending seizure. Continues to recommend keeping Depakote discontinued as a Depakote encephalopathy can resolve very quickly once Depakote is discontinued, even if the levels remained therapeutic. Also not to go up on Lamictal given possible Lamictal toxicity as level is still pending; recommends to not at any additional anti epileptics or increase existing ones. 03/20 Continue current treatment plan; no seizures; sleeping through the night Plan: Discontinued Depakote 750mg, last dose on 03/18; level drawn today on 03/19 and WNL at 82 Continue Zonegran 400 mg daily Continue Lamictal 200 mg b.i.d. (recently decreased; concern for possibly being lamictal-toxic; lamictal encephalopathy)) Although patient does have seizure disorder, discussed with Bharat and plan remains to dc depakote rather than taper (per dr. Mishra, [facility] neurology) 03/21/23- Discharge 03/22. 03/22/23- Discharge is postponed as pt has decompensated over night with an increase in symptoms of psychosis, agitation. Haldol trial not too effective. Lorazepam more effective. Continue Risperdal, Lorazepam prn. 03/23/23- Lamictal level 03/24 Increase a.m. Risperdal to 2 mg. Continue HS Risperdal 03/24/2023 continue current treatment plan 03/25/23 Continue current regime and plan of care. 03/26/23: no changes to current med plan as some gradual improvement as per staff. Will change to 15 minute checks 03/27: no changes Reason for continued inpatient stay Substantial Risk for: rapid decompensation Time Spent With Patient Time: Total time managing care of this patient today ____ minutes.
[2023-03-27] MEDS: OLANZapine 5 MG TABLET PO (16:16)
[2023-03-27 17:28] LABS: Lamotrigine Lamictal 24.4 mcg/mL (2.5-15.0)
[2023-03-27 18:00] VITALS: BP 128/74; PULSE 82; TEMP 36.2
[2023-03-27] MEDS: risperiDONE 3 MG TABLET PO (22:31)
[2023-03-28] MEDS: Omeprazole 20 MG CAPSULE.DR PO (06:16)
[2023-03-28 08:00] VITALS: BP 124/61; PULSE 99; TEMP 36.4; O2SAT 98
[2023-03-28] MEDS: risperiDONE 2 MG TABLET PO (08:43)
[2023-03-28] MEDS: Zonisamide 100 MG CAPSULE 400 MG PO (08:43)
[2023-03-28] MEDS: OLANZapine 5 MG TABLET PO (08:43)
[2023-03-28] MEDS: lamoTRIgine 100 MG TABLET 200 MG PO ×2 (08:43→22:43)
[2023-03-28] MEDS: Multivitamin TABLET 1 TAB PO (08:43)
--- NOTE | 2023-03-28 09:38 | HO.PSYCHPN ---
Subjective Subjective Date of Service: 03/28/23 Reason For Visit: Schizophrenia Subjective Notes: Conditional Voluntary Interim History: Pt reports she was feeling sick few days ago now reports only congestion. Covid was positive. Pt reports her family and her were concern about her. When asked about reason for this admission, she states I don't know. She denies SI/HI. No overt delusional content reported. She does appear internally preoccupied. No SOB, no cough. afebrile. O2sat 98% on RA. Review of Systems Review of Systems Nothing acute noted Yes all other systems are reviewed and are negative and Unobtainable due to mental status Reports other (states she feels unbalanced at times. Seizure d/o dx) Mental Status Exam Mental Status Exam Patient Appearance: Disheveled Patient Orientation: Person and Place Level of Consciousness: Alert Patient Behavior: Talkative and Good Eye Contact Mood Description: Withdrawn Affect Description: Withdrawn Patient Cognition Impaired: Yes Ability to Follow Directions: Fair Speech Pattern: Perseverating, Spontaneous Speech and Soft-Spoken Memory Description: Remote Impaired and Episodic Impaired Diagnostics Vital Signs (24Hr): Vital Signs - 24 hr 03/27/23 09:47 03/27/23 18:00 03/28/23 08:00 Temperature 96.8 F 97.2 F 97.6 F Pulse Rate 74 82 99 Respiratory Rate 18 Blood Pressure 139/67 128/74 124/61 Pulse Oximetry 99 98 Oxygen Delivery Method Room Air Room Air BMI result Body Mass Index 39.0 Labs 03/16/23 09:12 03/16/23 09:12 Labs: Laboratory Results - last 48 hr 03/24/23 08:21 Lamotrigine 24.4 H Imaging Radiology Impressions: ITS Impressions Head CT 03/18/23 14:55 IMPRESSION: No acute intracranial pathology. Medications Medications Current Medications Acetaminophen (Acetaminophen 325 Mg Tablet) 650 mg PO Q6H PRN PRN Reason: Headache/Pain Mild Scale (1-3) Last Admin: 03/27/23 03:26 Dose: 325 mg Al Hydroxide/Mg Hydroxide (Magnesium Hydrox/Alum Hydrox 30 Ml Oral.Susp) 30 ml PO Q6H PRN PRN Reason: Heartburn/Nausea Clonazepam (Clonazepam 0.5 Mg Tablet) 0.5 mg PO DAILY PRN PRN Reason: Anxiety Last Admin: 03/22/23 13:11 Dose: 0.5 mg Ergocalciferol (Ergocalciferol (Vitamin D2) 1,250 Mcg Capsule) 1,250 mcg PO Q7D [facility] Last Admin: 03/22/23 10:53 Dose: 1,250 mcg Hydroxyzine HCl (Hydroxyzine Hcl 25 Mg Tablet) 25 mg PO Q6H PRN PRN Reason: Anxiety Last Admin: 03/22/23 13:11 Dose: 25 mg Lamotrigine (Lamotrigine 100 Mg Tablet) 200 mg PO BID [facility] Last Admin: 03/28/23 08:43 Dose: 200 mg Lorazepam (Lorazepam 1 Mg Tablet) 1 mg PO TID PRN PRN Reason: nausea (prodrom to seizure) Last Admin: 03/27/23 16:16 Dose: 1 mg Magnesium Hydroxide (Milk Of Magnesia 30 Ml Oral.Susp) 30 ml PO DAILY PRN PRN Reason: Constipation Multivitamins/Vitamin C (Multivitamin Tablet) 1 tab PO DAILY [facility] Last Admin: 03/28/23 08:43 Dose: 1 tab Nicotine Polacrilex (Nicotine Polacrilex 2 Mg Gum) 4 mg BUCCAL Q2H PRN PRN Reason: Nicotine Cravings Olanzapine (Olanzapine 5 Mg Tablet) 5 mg PO TID PRN PRN Reason: agitation Last Admin: 03/28/23 08:43 Dose: 5 mg Omeprazole (Omeprazole 20 Mg Capsule.Dr) 20 mg PO DAILY@0630 [facility] Last Admin: 03/28/23 06:16 Dose: 20 mg Risperidone (Risperidone 3 Mg Tablet) 3 mg PO BEDTIME [facility] Last Admin: 03/27/23 22:31 Dose: 3 mg Risperidone (Risperidone 2 Mg Tablet) 2 mg PO DAILY [facility] Last Admin: 03/28/23 08:43 Dose: 2 mg Trazodone HCl (Trazodone Hcl 50 Mg Tablet) 50 mg PO BEDTIME MRX1 PRN PRN Reason: Insomnia Zonisamide (Zonisamide 100 Mg Capsule) 400 mg PO DAILY [facility] Last Admin: 03/28/23 08:43 Dose: 400 mg Allergies Allergies Allergy/AdvReac Type Severity Reaction Status Date / Time folic acid Allergy Unknown Verified 03/15/23 16:35 ibuprofen Allergy Unknown Verified 03/15/23 16:35 loratadine Allergy Unknown Verified 03/15/23 16:35 phenytoin Allergy Unknown Verified 03/15/23 16:35 divalproex sodium AdvReac Severe psychosis, Verified 03/21/23 18:32 [From Depakote] violence Assessment & Plan Assessment & Plan (1) Schizoaffective disorder, bipolar type: Status: Acute Code(s): F25.0 - Schizoaffective disorder, bipolar type Plan Pt is a 38-year-old female with a PMH significant for?seizure disorder, anxiety, depression, and bipolar disorder who is admitted to psychiatry unit for increasing paranoia and appearing withdrawn. Patient presented accompanied by her family report she has been hearing voices, responding to internal stimuli, and been noncompliant with her medications. Medical consult for admission H&P. -grandmal - 03/17/23- Continue to gather collateral. At this time, continue current regime and plan of care. 03/18/23- Consults with parents, neurologist, Dr. Mishra -Neuro consult -Labs-valproate, lamictal, ammonia 25 (13-55) -EEG -CAT -Decrease Lamictal to 200 mg bid (since maybe lamictal-toxic; lamictal encephalopathy) -Zonegran 400 mg daily -DC Depakote 03/19 -better behavioral control today -patient reported feeling nauseous, with mild stomach discomfort and says she felt dizzy. She says she has not had a bowel movement in several days. Did not want any medication to help with this but said she will eventually have a BM on her own. Patient has been drinking fluids. Vitals stable -Mother reports that patient complaint of headache and nausea is usually prodrome to pending seizure. -Sheet Metal Assembler discussed case with Dr. Mishra who agreed with using Ativan as a p.r.n. if concern for pending seizure. Continues to recommend keeping Depakote discontinued as a Depakote encephalopathy can resolve very quickly once Depakote is discontinued, even if the levels remained therapeutic. Also not to go up on Lamictal given possible Lamictal toxicity as level is still pending; recommends to not at any additional anti epileptics or increase existing ones. 03/20 Continue current treatment plan; no seizures; sleeping through the night Plan: Discontinued Depakote 750mg, last dose on 03/18; level drawn today on 03/19 and WNL at 82 Continue Zonegran 400 mg daily Continue Lamictal 200 mg b.i.d. (recently decreased; concern for possibly being lamictal-toxic; lamictal encephalopathy)) Although patient does have seizure disorder, discussed with Bharat and plan remains to dc depakote rather than taper (per dr. Mishra, [facility] neurology) 03/21/23- Discharge 03/22. 03/22/23- Discharge is postponed as pt has decompensated over night with an increase in symptoms of psychosis, agitation. Haldol trial not too effective. Lorazepam more effective. Continue Risperdal, Lorazepam prn. 03/23/23- Lamictal level 03/24 Increase a.m. Risperdal to 2 mg. Continue HS Risperdal 03/24/2023 continue current treatment plan 03/25/23 Continue current regime and plan of care. 03/26/23: no changes to current med plan as some gradual improvement as per staff. Will change to 15 minute checks 03/27: no changes 03/28 continue current tx. covid positive. needs to be isolated. No acute symptoms. afebrile, no SOB, o2sat >97% on RA. Reason for continued inpatient stay Substantial Risk for: inability to function Time Spent With Patient Time: Total time managing care of this patient today ____ minutes.
[2023-03-28 10:51] LABS: IDNOW Serial# 08D9AD1C
[2023-03-28 10:52] LABS: COVID-19 Test Positive (Negative)
[2023-03-28 17:25] VITALS: TEMP 36.6
[2023-03-28 18:25] VITALS: BP 127/79; PULSE 106; RESP 16; TEMP 37; O2SAT 99
[2023-03-28] MEDS: risperiDONE 3 MG TABLET PO (23:01)
[2023-03-29] MEDS: Omeprazole 20 MG CAPSULE.DR PO (05:36)
[2023-03-29 08:30] VITALS: BP 117/67; PULSE 97; RESP 18; TEMP 37.2; O2SAT 97
[2023-03-29] MEDS: lamoTRIgine 100 MG TABLET 200 MG PO (10:06)
[2023-03-29] MEDS: Zonisamide 100 MG CAPSULE 400 MG PO (10:07)
[2023-03-29] MEDS: Multivitamin TABLET 1 TAB PO (10:07)
[2023-03-29] MEDS: risperiDONE 2 MG TABLET PO (10:07)
--- NOTE | 2023-03-29 12:16 | PM.NEUROCN ---
History of Present Illness Data of Consult Service Date: 03/29/23 Primary Care Provider: Unknown Physician HPI Reason for consult: Seizure disorder 38 years old woman who stated that she started having seizures when she was 14 years old. He said that she has been told that she had seizures but did not know what exactly symptoms were. He said that she did not pass out and probably did not have convulsion. Other than no details were available. She said that she was seeing Dr. Mishra in [facility] who was prescribing a medicine for seizures. When asked when was her last seizure, she could not tell stating that she did not know. She was admitted hospital for worsening of her psychiatric symptoms with underlying diagnosis of schizoaffective disorder. Review of Systems Review of Systems: No headache or head trauma. [facility] Past Medical History Medical History Seizure disorder Schizoaffective disorder, bipolar type Social History Social History Household Members: Children Household Members Other:: Lives with son Housing: Apartment Do you presently have visiting nurse or other home services: No Patient Tobacco Use Status: Former Tobacco user Tobacco use type: Cigarette Smoked in Last 30 Days: No Patient Interested in Nicotine Replacement: No Patient Given Instructions on How to Stop Smoking: No Second Hand Smoke Exposure: No Use of substances other than those prescribed or required for medical reasons: No Currently Displaying Signs/Symptoms of Drug Intoxication Withdrawal: No Have you been hit, kicked, punched, or otherwise hurt by someone within the past year? If so, by whom?: No Do you feel safe in your current relationship?: No Current Relationship Is there a partner from a previous relationship who is making you feel unsafe now?: No Are you made to feel afraid or neglected: No Spiritual Healthcare Practices: None Reported Jew Healthcare Practices: None Reported Cultural Healthcare Practices: None Reported Advance Directives: No Advance Directives Information Provided: No Do you have thoughts of harming others: None Do you have a plan to hurt others: No Plan Recently lost weight without trying: No Eating poorly because of decreased appetite: No Nutrition Risks: No Nutritional Risk Patient : No : No Poor oral hygiene: No service: No Meds Allergies Allergy/AdvReac Type Severity Reaction Status Date / Time folic acid Allergy Unknown Verified 03/15/23 16:35 ibuprofen Allergy Unknown Verified 03/15/23 16:35 loratadine Allergy Unknown Verified 03/15/23 16:35 phenytoin Allergy Unknown Verified 03/15/23 16:35 divalproex sodium AdvReac Severe psychosis, Verified 03/21/23 18:32 [From Depakote] violence Active Medications: Current Medications Acetaminophen (Acetaminophen 325 Mg Tablet) 650 mg PO Q6H PRN PRN Reason: Headache/Pain Mild Scale (1-3) Last Admin: 03/27/23 03:26 Dose: 325 mg Al Hydroxide/Mg Hydroxide (Magnesium Hydrox/Alum Hydrox 30 Ml Oral.Susp) 30 ml PO Q6H PRN PRN Reason: Heartburn/Nausea Clonazepam (Clonazepam 0.5 Mg Tablet) 0.5 mg PO DAILY PRN PRN Reason: Anxiety Last Admin: 03/22/23 13:11 Dose: 0.5 mg Ergocalciferol (Ergocalciferol (Vitamin D2) 1,250 Mcg Capsule) 1,250 mcg PO Q7D [facility] Last Admin: 03/22/23 10:53 Dose: 1,250 mcg Hydroxyzine HCl (Hydroxyzine Hcl 25 Mg Tablet) 25 mg PO Q6H PRN PRN Reason: Anxiety Last Admin: 03/22/23 13:11 Dose: 25 mg Lamotrigine (Lamotrigine 100 Mg Tablet) 200 mg PO BID [facility] Last Admin: 03/29/23 10:06 Dose: 200 mg Lorazepam (Lorazepam 1 Mg Tablet) 1 mg PO TID PRN PRN Reason: nausea (prodrom to seizure) Last Admin: 03/27/23 16:16 Dose: 1 mg Magnesium Hydroxide (Milk Of Magnesia 30 Ml Oral.Susp) 30 ml PO DAILY PRN PRN Reason: Constipation Multivitamins/Vitamin C (Multivitamin Tablet) 1 tab PO DAILY [facility] Last Admin: 03/29/23 10:07 Dose: 1 tab Nicotine Polacrilex (Nicotine Polacrilex 2 Mg Gum) 4 mg BUCCAL Q2H PRN PRN Reason: Nicotine Cravings Olanzapine (Olanzapine 5 Mg Tablet) 5 mg PO TID PRN PRN Reason: agitation Last Admin: 03/28/23 08:43 Dose: 5 mg Omeprazole (Omeprazole 20 Mg Capsule.Dr) 20 mg PO DAILY@0630 [facility] Last Admin: 03/29/23 05:36 Dose: 20 mg Risperidone (Risperidone 3 Mg Tablet) 3 mg PO BEDTIME [facility] Last Admin: 03/28/23 23:01 Dose: 3 mg Risperidone (Risperidone 2 Mg Tablet) 2 mg PO DAILY [facility] Last Admin: 03/29/23 10:07 Dose: 2 mg Trazodone HCl (Trazodone Hcl 50 Mg Tablet) 50 mg PO BEDTIME MRX1 PRN PRN Reason: Insomnia Zonisamide (Zonisamide 100 Mg Capsule) 400 mg PO DAILY [facility] Last Admin: 03/29/23 10:07 Dose: 400 mg Physical Exam Vital Signs: Vital Signs: Last Vital Signs Temp 98.6 F 03/28/23 18:25 Pulse 106 H 03/28/23 18:25 Resp 16 03/28/23 18:25 BP 127/79 03/28/23 18:25 Pulse Ox 99 03/28/23 18:25 O2 Del Method Room Air 03/28/23 18:25 BMI result Body Mass Index 39.0 Neuro: Other: She is alert and awake with normal spontaneity of speech fluency comprehension and anxious and shy affect. Visual zambrano are full. There is no obvious I abnormality. Face is symmetrical. There is no obvious focal weakness. Deep tendon reflexes are trace to 1+ with flexor plantars. She showed me couple of birthmarks but none of them were significant. Results Labs 03/16/23 09:12 03/16/23 09:12 Labs: Noncontrast head CT did not reveal any significant abnormality. Assessment and Plan (1) Seizure disorder: Status: Acute 38 years old woman who self reported that she suffered from seizure disorder and was seen Dr. Mishra in [facility]. She details of symptoms of seizures were not clear. At this time she was not having any obvious seizure-like episode and was taking lamotrigine 200 mg twice a day. No further intervention is recommended at this time and my recommendation is to refer her to Dr. Mishra for outpatient follow-up. Procedures Date of Service Date of Service: 03/29/23
[2023-03-29] MEDS: Ergocalciferol (Vitamin D2) 1,250 MCG CAPSULE 1250 MCG PO (13:33)
--- NOTE | 2023-03-29 15:37 | HO.PSYCHPN ---
Subjective Subjective Date of Service: 03/29/23 Reason For Visit: Schizophrenia Subjective Notes: Conditional Voluntary Healthcare Proxy: No Guardianship: No Medical Problems Affecting Mental Status: No Interim History: COVID positive. Neurology consult appreciated. Contact with Dr. Mishra's team [phone], [place], to report new result of Lamictal level of 03/24, 24.4. Dr. Mishra requests lamictal be decreased to 150 mg bid which was completed with recheck of level in one week. Pt in bed today, reports not feeling well, asks to rest. Denies current questions or issues. Discussed Dr. Mishra's recommendations and she agreed. Will order follow up diagnostics and she agrees as well. Medication Compliance: Yes Side effects from medications: No Attending Groups: No Review of Systems Acute medical concerns: No COVID+ Medical Review of Systems: unchanged Review of Systems Review of Systems Yes Unobtainable due to mental condition Mental Status Exam Mental Status Exam Patient Appearance: Fatigued Patient Orientation: Person, Place, Time and Situation Level of Consciousness: Alert Patient Behavior: Appropriate, Talkative and Good Eye Contact Mood Description: Constricted Affect Description: Constricted Patient Cognition Impaired: No Ability to Follow Directions: Good Speech Pattern: Spontaneous Speech Memory Description: Intact Hallucinations: None Delusions: Not Present Thought Process: Intact Thought Content: positive for Circumstantial Depressive Symptoms: Increased Fatigue and Loss of Energy Judgement: Fair Diagnostics Vital Signs (24Hr): Vital Signs - 24 hr 03/28/23 17:25 03/28/23 18:25 Temperature 97.9 F 98.6 F Pulse Rate 106 H Respiratory Rate 16 Blood Pressure 127/79 Pulse Oximetry 99 Oxygen Delivery Method Room Air BMI result Body Mass Index 39.0 Labs 03/16/23 09:12 03/16/23 09:12 Labs: Laboratory Results - last 48 hr 03/24/23 03/28/23 08:21 09:25 Lamotrigine 24.4 H COVID-19 ([facility]) Positive A COVID-19 Clin Com See Note Imaging Radiology Impressions: ITS Impressions Head CT 03/18/23 14:55 IMPRESSION: No acute intracranial pathology. Medications Medications Current Medications Acetaminophen (Acetaminophen 325 Mg Tablet) 650 mg PO Q6H PRN PRN Reason: Headache/Pain Mild Scale (1-3) Last Admin: 03/27/23 03:26 Dose: 325 mg Al Hydroxide/Mg Hydroxide (Magnesium Hydrox/Alum Hydrox 30 Ml Oral.Susp) 30 ml PO Q6H PRN PRN Reason: Heartburn/Nausea Clonazepam (Clonazepam 0.5 Mg Tablet) 0.5 mg PO DAILY PRN PRN Reason: Anxiety Last Admin: 03/22/23 13:11 Dose: 0.5 mg Ergocalciferol (Ergocalciferol (Vitamin D2) 1,250 Mcg Capsule) 1,250 mcg PO Q7D [facility] Last Admin: 03/29/23 13:33 Dose: 1,250 mcg Hydroxyzine HCl (Hydroxyzine Hcl 25 Mg Tablet) 25 mg PO Q6H PRN PRN Reason: Anxiety Last Admin: 03/22/23 13:11 Dose: 25 mg Lamotrigine (Lamotrigine 100 Mg Tablet) 200 mg PO BID [facility] Last Admin: 03/29/23 10:06 Dose: 200 mg Lorazepam (Lorazepam 1 Mg Tablet) 1 mg PO TID PRN PRN Reason: nausea (prodrom to seizure) Last Admin: 03/27/23 16:16 Dose: 1 mg Magnesium Hydroxide (Milk Of Magnesia 30 Ml Oral.Susp) 30 ml PO DAILY PRN PRN Reason: Constipation Multivitamins/Vitamin C (Multivitamin Tablet) 1 tab PO DAILY [facility] Last Admin: 03/29/23 10:07 Dose: 1 tab Nicotine Polacrilex (Nicotine Polacrilex 2 Mg Gum) 4 mg BUCCAL Q2H PRN PRN Reason: Nicotine Cravings Olanzapine (Olanzapine 5 Mg Tablet) 5 mg PO TID PRN PRN Reason: agitation Last Admin: 03/28/23 08:43 Dose: 5 mg Omeprazole (Omeprazole 20 Mg Capsule.Dr) 20 mg PO DAILY@0630 [facility] Last Admin: 03/29/23 05:36 Dose: 20 mg Risperidone (Risperidone 3 Mg Tablet) 3 mg PO BEDTIME [facility] Last Admin: 03/28/23 23:01 Dose: 3 mg Risperidone (Risperidone 2 Mg Tablet) 2 mg PO DAILY [facility] Last Admin: 03/29/23 10:07 Dose: 2 mg Trazodone HCl (Trazodone Hcl 50 Mg Tablet) 50 mg PO BEDTIME MRX1 PRN PRN Reason: Insomnia Zonisamide (Zonisamide 100 Mg Capsule) 400 mg PO DAILY [facility] Last Admin: 03/29/23 10:07 Dose: 400 mg Allergies Allergies Allergy/AdvReac Type Severity Reaction Status Date / Time folic acid Allergy Unknown Verified 03/15/23 16:35 ibuprofen Allergy Unknown Verified 03/15/23 16:35 loratadine Allergy Unknown Verified 03/15/23 16:35 phenytoin Allergy Unknown Verified 03/15/23 16:35 divalproex sodium AdvReac Severe psychosis, Verified 03/21/23 18:32 [From Depakote] violence Assessment & Plan Assessment & Plan (1) Seizure disorder: Status: Acute Code(s): G40.909 - Epilepsy, unspecified, not intractable, without status epilepticus Assessment and Plan: 38 years old woman who self reported that she suffered from seizure disorder and was seen Dr. Mishra in [facility]. She details of symptoms of seizures were not clear. At this time she was not having any obvious seizure-like episode and was taking lamotrigine 200 mg twice a day. No further intervention is recommended at this time and my recommendation is to refer her to Dr. Mishra for outpatient follow-up. Plan 03/29/23- Neurology input appreciated. Decrease Lamictal to 150 mg bid. Repeat level in one week, per recommendation of pt's neurologist, Dr. Mishra. Continue current regime and plan of care while pt recovers from COVID. Informed Consent: understands Reason for continued inpatient stay Substantial Risk for: med/psych decompensation Time Spent With Patient Time: Total time managing care of this patient today ____ minutes.
[2023-03-29 18:00] VITALS: BP 137/71; PULSE 102; TEMP 36.5; O2SAT 99
[2023-03-29] MEDS: risperiDONE 3 MG TABLET PO (20:21)
[2023-03-29] MEDS: LORazepam 1 MG TABLET PO (20:21)
[2023-03-29] MEDS: traZODone HCL 50 MG TABLET PO (20:21)
[2023-03-29] MEDS: lamoTRIgine 100 MG TABLET 150 MG PO (20:22)
[2023-03-29] MEDS: hydrOXYzine HCL 25 MG TABLET PO (20:22)
[2023-03-30] MEDS: Omeprazole 20 MG CAPSULE.DR PO (06:04)
[2023-03-30 08:02] LABS: MANUAL DIFF FLAG NO
[2023-03-30 08:06] LABS: Basophils Percent Auto 0.5 % (0-2); Eosinophils Absolute Auto 0.2 X10*3/uL (0.0-0.4); Eosinophils Percent Auto 2.6 % (0-4); Hematocrit 38.6 % (37.0-47.0); Hemoglobin 12.7 g/dl (12.0-16.0); Imm Gran Abs Auto 0.06 X10*3/uL (0.00-0.03); Imm Gran Pct Auto 0.7 % (0.0-0.4); Lymphocytes Absolute Auto 2.5 X10*3/uL (1.2-4.9); Lymphocytes Percent Auto 30.9 % (20-40); Mean Corpuscular HGB Conc 32.9 g/dl (31.0-35.0); Mean Corpuscular Hemoglobin 30.2 pg (27.0-33.0); Mean Corpuscular Volume 91.9 fL (80.0-98.0); Mean Platelet Volume 9.1 fL (9.4-12.3); Monocytes Absolute Auto 0.7 X10*3/uL (0.1-1.2); Monocytes Percent Auto 8.3 % (2-11); Neutrophils Absolute Auto 4.6 x10*3/uL (2.0-8.3); Platelet Count 290 X10*3/uL (160-400); Red Cell Distribution Width 14.2 % (11.0-16.0); White Blood Count 8.1 X10*3/uL (4.8-10.8)
[2023-03-30 08:12] LABS: Ammonia 34 umol/L (13-55)
[2023-03-30 08:20] LABS: Alanine Aminotransferase 42 U/L (0-31); Albumin Level 3.7 g/dL (3.5-5.0); Alkaline Phosphatase 104 U/L (39-117); Anion Gap 11 (12-20); Aspartate Amino Transferase 20 U/L (5-31); Bilirubin Total 0.2 mg/dL (0.0-1.0); Blood Urea Nitrogen 15 mg/dL (9-16); Calcium 9.1 mg/dL (8.4-10.2); Carbon Dioxide 22 mmol/L (22-29); Chloride 107 mmol/L (96-108); Creatinine Clr Calc Pharmacy 65.5; Estimated Glomerular Filt Rate 52; Glucose Random 119 mg/dL (60-115); Sodium 136 mmol/L (135-145); Total Protein 6.8 g/dL (6.5-8.0)
[2023-03-30] MEDS: risperiDONE 2 MG TABLET PO (09:19)
[2023-03-30] MEDS: Multivitamin TABLET 1 TAB PO (09:19)
[2023-03-30] MEDS: Zonisamide 100 MG CAPSULE 400 MG PO (09:19)
[2023-03-30] MEDS: lamoTRIgine 100 MG TABLET 150 MG PO ×2 (09:19→21:05)
[2023-03-30 16:42] VITALS: BP 112/66; PULSE 100; RESP 17; TEMP 36.1; O2SAT 96
--- NOTE | 2023-03-30 17:42 | HO.PSYCHPN ---
Subjective Subjective Date of Service: 03/30/23 Reason For Visit: Schizophrenia Subjective Notes: Conditional Voluntary Healthcare Proxy: No Guardianship: No Medical Problems Affecting Mental Status: No Interim History: COVID+. Pt reports feeling improved. Reviewed recent Lamictal level results and consultation with Dr. Mishra. Reviewed Dr. Mishra' recommendation to decrease Lamictal to 150 mg bid. She agrees. Pt asks about discharge. Discussed with parents. They are thinking 04/04. Discussed with both their availability to be of support to pt upon discharge for medical appts/diagnostics etc. They ask that she be completely well before discharge. This idea was discussed. Medication Compliance: Yes Side effects from medications: No Attending Groups: No Review of Systems Acute medical concerns: Yes COVID+ Medical Review of Systems: unchanged Review of Systems Review of Systems Yes all other systems are reviewed and are negative Mental Status Exam Mental Status Exam Patient Appearance: Fatigued Patient Orientation: Person, Place, Time and Situation Level of Consciousness: Alert Patient Behavior: Appropriate, Talkative and Good Eye Contact Mood Description: Constricted Affect Description: Constricted Patient Cognition Impaired: No Ability to Follow Directions: Good Speech Pattern: Spontaneous Speech Memory Description: Intact Hallucinations: None Delusions: Not Present Thought Process: Intact Thought Content: positive for Circumstantial Depressive Symptoms: Increased Fatigue and Loss of Energy Judgement: Fair Diagnostics Vital Signs (24Hr): Vital Signs - 24 hr 03/29/23 18:00 03/30/23 16:42 Temperature 97.7 F 97.0 F Pulse Rate 102 H 100 Respiratory Rate 17 Blood Pressure 137/71 112/66 Pulse Oximetry 99 96 Oxygen Delivery Method Room Air Room Air BMI result Body Mass Index 39.0 Labs 03/30/23 07:57 03/30/23 07:57 Labs: Laboratory Results - last 48 hr 03/30/23 07:57 WBC 8.1 RBC 4.20 Hgb 12.7 Hct 38.6 MCV 91.9 MCH 30.2 MCHC 32.9 RDW 14.2 Plt Count 290 MPV 9.1 L Immature Gran % (Auto) 0.7 H Neut % (Auto) 57.0 Lymph % (Auto) 30.9 [place] % (Auto) 8.3 Eos % (Auto) 2.6 Baso % (Auto) 0.5 Lymph # (Auto) 2.5 [place] # (Auto) 0.7 Eos # (Auto) 0.2 Baso # (Auto) 0.0 Abs Immat Gran (auto) 0.06 H Absolute Neuts (auto) 4.6 Absolute Nucleated RBC 0.000 Nucleated RBC % (auto) 0.0 Sodium 136 Potassium 4.0 Chloride 107 Carbon Dioxide 22 Anion Gap 11 L BUN 15 Creatinine 1.18 Estim Creat Clear Calc 65.5 Estimated GFR 52 Random Glucose 119 H Calcium 9.1 Total Bilirubin 0.2 AST 20 ALT 42 H Alkaline Phosphatase 104 Ammonia 34 Total Protein 6.8 Albumin 3.7 Imaging Radiology Impressions: ITS Impressions Head CT 03/18/23 14:55 IMPRESSION: No acute intracranial pathology. Medications Medications Current Medications Acetaminophen (Acetaminophen 325 Mg Tablet) 650 mg PO Q6H PRN PRN Reason: Headache/Pain Mild Scale (1-3) Last Admin: 03/27/23 03:26 Dose: 325 mg Al Hydroxide/Mg Hydroxide (Magnesium Hydrox/Alum Hydrox 30 Ml Oral.Susp) 30 ml PO Q6H PRN PRN Reason: Heartburn/Nausea Clonazepam (Clonazepam 0.5 Mg Tablet) 0.5 mg PO DAILY PRN PRN Reason: Anxiety Last Admin: 03/22/23 13:11 Dose: 0.5 mg Ergocalciferol (Ergocalciferol (Vitamin D2) 1,250 Mcg Capsule) 1,250 mcg PO Q7D [facility] Last Admin: 03/29/23 13:33 Dose: 1,250 mcg Hydroxyzine HCl (Hydroxyzine Hcl 25 Mg Tablet) 25 mg PO Q6H PRN PRN Reason: Anxiety Last Admin: 03/29/23 20:22 Dose: 25 mg Lamotrigine (Lamotrigine 100 Mg Tablet) 150 mg PO BID [facility] Last Admin: 03/30/23 09:19 Dose: 150 mg Lorazepam (Lorazepam 1 Mg Tablet) 1 mg PO TID PRN PRN Reason: nausea (prodrom to seizure) Last Admin: 03/29/23 20:21 Dose: 1 mg Magnesium Hydroxide (Milk Of Magnesia 30 Ml Oral.Susp) 30 ml PO DAILY PRN PRN Reason: Constipation Multivitamins/Vitamin C (Multivitamin Tablet) 1 tab PO DAILY [facility] Last Admin: 03/30/23 09:19 Dose: 1 tab Nicotine Polacrilex (Nicotine Polacrilex 2 Mg Gum) 4 mg BUCCAL Q2H PRN PRN Reason: Nicotine Cravings Olanzapine (Olanzapine 5 Mg Tablet) 5 mg PO TID PRN PRN Reason: agitation Last Admin: 03/28/23 08:43 Dose: 5 mg Omeprazole (Omeprazole 20 Mg Capsule.) 20 mg PO DAILY@0630 [facility] Last Admin: 03/30/23 06:04 Dose: 20 mg Risperidone (Risperidone 3 Mg Tablet) 3 mg PO BEDTIME [facility] Last Admin: 03/29/23 20:21 Dose: 3 mg Risperidone (Risperidone 2 Mg Tablet) 2 mg PO DAILY [facility] Last Admin: 03/30/23 09:19 Dose: 2 mg Trazodone HCl (Trazodone Hcl 50 Mg Tablet) 50 mg PO BEDTIME MRX1 PRN PRN Reason: Insomnia Last Admin: 03/29/23 20:21 Dose: 50 mg Zonisamide (Zonisamide 100 Mg Capsule) 400 mg PO DAILY [facility] Last Admin: 03/30/23 09:19 Dose: 400 mg Allergies Allergies Allergy/AdvReac Type Severity Reaction Status Date / Time folic acid Allergy Unknown Verified 03/15/23 16:35 ibuprofen Allergy Unknown Verified 03/15/23 16:35 loratadine Allergy Unknown Verified 03/15/23 16:35 phenytoin Allergy Unknown Verified 03/15/23 16:35 divalproex sodium AdvReac Severe psychosis, Verified 03/21/23 18:32 [From Depakote] violence Assessment & Plan Assessment & Plan (1) Seizure disorder: Status: Acute Code(s): G40.909 - Epilepsy, unspecified, not intractable, without status epilepticus Assessment and Plan: 38 years old woman who self reported that she suffered from seizure disorder and was seen Dr. Mishra in [facility]. She details of symptoms of seizures were not clear. At this time she was not having any obvious seizure-like episode and was taking lamotrigine 200 mg twice a day. No further intervention is recommended at this time and my recommendation is to refer her to Dr. Mishra for outpatient follow-up. Plan 03/29/23- Neurology input appreciated. Decrease Lamictal to 150 mg bid. Repeat level in one week, per recommendation of pt's neurologist, Dr. Mishra. Continue current regime and plan of care while pt recovers from COVID. 03/30/23 Continue current regime and plan of care. Discharge planning, possibly 04/04 in discussion with parents. Patient educated on: medication risk/benefits Guardian/Caregiver educated on: medication risk/benefits, therapeutic strategies and medical condition Informed Consent: understands and further education needed Reason for continued inpatient stay Substantial Risk for: med/psych decompensation Time Spent With Patient Time: Total time managing care of this patient today ____ minutes.
[2023-03-30] MEDS: risperiDONE 3 MG TABLET PO (21:06)
[2023-03-31] MEDS: Omeprazole 20 MG CAPSULE.DR PO (05:59)
[2023-03-31 08:15] VITALS: BP 114/67; PULSE 95; RESP 18; TEMP 36.7; O2SAT 98
[2023-03-31] MEDS: Multivitamin TABLET 1 TAB PO (09:23)
[2023-03-31] MEDS: Zonisamide 100 MG CAPSULE 400 MG PO (09:23)
[2023-03-31] MEDS: lamoTRIgine 100 MG TABLET 150 MG PO ×2 (09:23→21:11)
[2023-03-31] MEDS: risperiDONE 2 MG TABLET PO (09:23)
--- NOTE | 2023-03-31 09:42 | P.PNPSI_ITS ---
Subjective Subjective Date of Service: 03/31/23 Reason For Visit: Schizophrenia Interim History: met with patient; discussed with team; reviewed notes Patient can be heard talking to herself out loud with the door closed; on approach patient reports that she is good. Does not endorse any AVH. Denies any complaints or requests. no behavioral incidents, in good behavioral control Mental Status Exam Mental Status Exam Narrative: Pt is alert and oriented; behavior is cooperative, friendly and calm; patient is not in distress; dressed in casual attire with unkempt hair but adequate hygiene; mood is described as good and affect congruent; eye contact appropriate; Speech is normal rate, volume and prosody and not pressured; some psychomotor agitation/retardation present; thought process is goal directed; Thought content is on vacuous; Internally preoccupied; somewhat reticent but does not express any delusional/paranoid content; no SI/HI. Internally preoccupied, self dialogueing. Patients insight and judgment impaired but improved Diagnostics Vital Signs (24Hr): Vital Signs - 24 hr 03/30/23 16:42 Temperature 97.0 F Pulse Rate 100 Respiratory Rate 17 Blood Pressure 112/66 Pulse Oximetry 96 Oxygen Delivery Method Room Air BMI result Body Mass Index 39.0 Labs 03/30/23 07:57 03/30/23 07:57 Labs: Laboratory Results - last 48 hr 03/30/23 07:57 WBC 8.1 RBC 4.20 Hgb 12.7 Hct 38.6 MCV 91.9 MCH 30.2 MCHC 32.9 RDW 14.2 Plt Count 290 MPV 9.1 L Immature Gran % (Auto) 0.7 H Neut % (Auto) 57.0 Lymph % (Auto) 30.9 [place] % (Auto) 8.3 Eos % (Auto) 2.6 Baso % (Auto) 0.5 Lymph # (Auto) 2.5 [place] # (Auto) 0.7 Eos # (Auto) 0.2 Baso # (Auto) 0.0 Abs Immat Gran (auto) 0.06 H Absolute Neuts (auto) 4.6 Absolute Nucleated RBC 0.000 Nucleated RBC % (auto) 0.0 Sodium 136 Potassium 4.0 Chloride 107 Carbon Dioxide 22 Anion Gap 11 L BUN 15 Creatinine 1.18 Estim Creat Clear Calc 65.5 Estimated GFR 52 Random Glucose 119 H Calcium 9.1 Total Bilirubin 0.2 AST 20 ALT 42 H Alkaline Phosphatase 104 Ammonia 34 Total Protein 6.8 Albumin 3.7 Imaging Radiology Impressions: ITS Impressions Head CT 03/18/23 14:55 IMPRESSION: No acute intracranial pathology. Medications Medications Current Medications Acetaminophen (Acetaminophen 325 Mg Tablet) 650 mg PO Q6H PRN PRN Reason: Headache/Pain Mild Scale (1-3) Last Admin: 03/27/23 03:26 Dose: 325 mg Al Hydroxide/Mg Hydroxide (Magnesium Hydrox/Alum Hydrox 30 Ml Oral.Susp) 30 ml PO Q6H PRN PRN Reason: Heartburn/Nausea Clonazepam (Clonazepam 0.5 Mg Tablet) 0.5 mg PO DAILY PRN PRN Reason: Anxiety Last Admin: 03/22/23 13:11 Dose: 0.5 mg Ergocalciferol (Ergocalciferol (Vitamin D2) 1,250 Mcg Capsule) 1,250 mcg PO Q7D [facility] Last Admin: 03/29/23 13:33 Dose: 1,250 mcg Hydroxyzine HCl (Hydroxyzine Hcl 25 Mg Tablet) 25 mg PO Q6H PRN PRN Reason: Anxiety Last Admin: 03/29/23 20:22 Dose: 25 mg Lamotrigine (Lamotrigine 100 Mg Tablet) 150 mg PO BID [facility] Last Admin: 03/31/23 09:23 Dose: 150 mg Lorazepam (Lorazepam 1 Mg Tablet) 1 mg PO TID PRN PRN Reason: nausea (prodrom to seizure) Last Admin: 03/29/23 20:21 Dose: 1 mg Magnesium Hydroxide (Milk Of Magnesia 30 Ml Oral.Susp) 30 ml PO DAILY PRN PRN Reason: Constipation Multivitamins/Vitamin C (Multivitamin Tablet) 1 tab PO DAILY [facility] Last Admin: 03/31/23 09:23 Dose: 1 tab Nicotine Polacrilex (Nicotine Polacrilex 2 Mg Gum) 4 mg BUCCAL Q2H PRN PRN Reason: Nicotine Cravings Olanzapine (Olanzapine 5 Mg Tablet) 5 mg PO TID PRN PRN Reason: agitation Last Admin: 03/28/23 08:43 Dose: 5 mg Omeprazole (Omeprazole 20 Mg Capsule.Dr) 20 mg PO DAILY@0630 [facility] Last Admin: 03/31/23 05:59 Dose: 20 mg Risperidone (Risperidone 3 Mg Tablet) 3 mg PO BEDTIME [facility] Last Admin: 03/30/23 21:06 Dose: 3 mg Risperidone (Risperidone 2 Mg Tablet) 2 mg PO DAILY [facility] Last Admin: 03/31/23 09:23 Dose: 2 mg Trazodone HCl (Trazodone Hcl 50 Mg Tablet) 50 mg PO BEDTIME MRX1 PRN PRN Reason: Insomnia Last Admin: 03/29/23 20:21 Dose: 50 mg Zonisamide (Zonisamide 100 Mg Capsule) 400 mg PO DAILY [facility] Last Admin: 03/31/23 09:23 Dose: 400 mg Allergies Allergies Allergy/AdvReac Type Severity Reaction Status Date / Time folic acid Allergy Unknown Verified 03/15/23 16:35 ibuprofen Allergy Unknown Verified 03/15/23 16:35 loratadine Allergy Unknown Verified 03/15/23 16:35 phenytoin Allergy Unknown Verified 03/15/23 16:35 divalproex sodium AdvReac Severe psychosis, Verified 03/21/23 18:32 [From Depakote] violence Assessment & Plan Assessment & Plan (1) Seizure disorder: Status: Acute Code(s): G40.909 - Epilepsy, unspecified, not intractable, without status epilepticus Assessment and Plan: 38 years old woman who self reported that she suffered from seizure disorder and was seen Dr. Mishra in [facility]. She details of symptoms of seizures were not clear. At this time she was not having any obvious seizure- like episode and was taking lamotrigine 200 mg twice a day. No further intervention is recommended at this time and my recommendation is to refer her to Dr. Mishra for outpatient follow-up. Plan 03/29/23- Neurology input appreciated. Decrease Lamictal to 150 mg bid. Repeat level in one week, per recommendation of pt's neurologist, Dr. Mishra. Continue current regime and plan of care while pt recovers from COVID. 03/30/23 Continue current regime and plan of care. Discharge planning, possibly 04/04 in discussion with parents. 03/31 Patient can be heard talking to herself out loud with the door closed; on approach patient reports that she is good. Does not endorse any AVH. Denies any complaints or requests. no behavioral incidents, in good behavioral control Patient educated on: diagnosis Informed Consent: further education needed Reason for continued inpatient stay Substantial Risk for: rapid decompensation Time Spent With Patient Time: Total time managing care of this patient today ____ minutes.
[2023-03-31 12:33] LABS: COVID-19 Test Positive (Negative); IDNOW Serial# BCCEAD1C
[2023-03-31 18:00] VITALS: BP 122/75; PULSE 111; RESP 18; TEMP 36.7; O2SAT 100
[2023-03-31] MEDS: risperiDONE 3 MG TABLET PO (21:11)
[2023-03-31] MEDS: Acetaminophen 325 MG TABLET 650 MG PO (21:11)
[2023-04-01] MEDS: Omeprazole 20 MG CAPSULE.DR PO (06:20)
[2023-04-01 09:23] VITALS: BP 122/72; PULSE 96; RESP 16; TEMP 37.1; O2SAT 95
[2023-04-01] MEDS: Multivitamin TABLET 1 TAB PO (09:26)
[2023-04-01] MEDS: lamoTRIgine 100 MG TABLET 150 MG PO ×2 (09:26→22:23)
[2023-04-01] MEDS: Zonisamide 100 MG CAPSULE 400 MG PO (09:26)
[2023-04-01] MEDS: risperiDONE 2 MG TABLET PO (09:26)
--- NOTE | 2023-04-01 12:54 | HO.PSYCHPN ---
Subjective Subjective Date of Service: 04/01/23 Reason For Visit: Schizophrenia Subjective Notes: Conditional Voluntary Healthcare Proxy: No Guardianship: No Medical Problems Affecting Mental Status: No Interim History: COVID +. Denies sx. Temp 98.7. Planning for discharge 04/04. Call to Dr. Mishra office to schedule appt. Will continue to follow on 04/04. Dr. Tad Pimentel's associate, will schedule and call on 04/04. Pt reports feeling improved, plans to return to her home and follow up with psychotherapy next week. Medication Compliance: Yes Side effects from medications: No Attending Groups: No Review of Systems Acute medical concerns: Yes COVID+ Medical Review of Systems: unchanged Review of Systems Review of Systems Yes all other systems are reviewed and are negative Mental Status Exam Mental Status Exam Patient Appearance: Fatigued Patient Orientation: Person, Place, Time and Situation Level of Consciousness: Alert Patient Behavior: Appropriate, Talkative and Good Eye Contact Mood Description: Constricted Affect Description: Constricted Patient Cognition Impaired: No Ability to Follow Directions: Good Speech Pattern: Spontaneous Speech Memory Description: Intact Hallucinations: None Delusions: Not Present Thought Process: Intact Thought Content: positive for Circumstantial Depressive Symptoms: Increased Fatigue and Loss of Energy Judgement: Fair Diagnostics Vital Signs (24Hr): Vital Signs - 24 hr 03/31/23 18:00 04/01/23 09:23 Temperature 98.0 F 98.7 F Pulse Rate 111 H 96 Respiratory Rate 18 16 Blood Pressure 122/75 122/72 Pulse Oximetry 100 95 Oxygen Delivery Method Room Air Room Air BMI result Body Mass Index 39.0 Labs 03/30/23 07:57 03/30/23 07:57 Labs: Laboratory Results - last 48 hr 03/31/23 11:55 COVID-19 ([facility]) Positive A COVID-19 Clin Com See Note Imaging Radiology Impressions: ITS Impressions Head CT 03/18/23 14:55 IMPRESSION: No acute intracranial pathology. Medications Medications Current Medications Acetaminophen (Acetaminophen 325 Mg Tablet) 650 mg PO Q6H PRN PRN Reason: Headache/Pain Mild Scale (1-3) Last Admin: 03/31/23 21:11 Dose: 650 mg Al Hydroxide/Mg Hydroxide (Magnesium Hydrox/Alum Hydrox 30 Ml Oral.Susp) 30 ml PO Q6H PRN PRN Reason: Heartburn/Nausea Clonazepam (Clonazepam 0.5 Mg Tablet) 0.5 mg PO DAILY PRN PRN Reason: Anxiety Last Admin: 03/22/23 13:11 Dose: 0.5 mg Ergocalciferol (Ergocalciferol (Vitamin D2) 1,250 Mcg Capsule) 1,250 mcg PO Q7D [facility] Last Admin: 03/29/23 13:33 Dose: 1,250 mcg Hydroxyzine HCl (Hydroxyzine Hcl 25 Mg Tablet) 25 mg PO Q6H PRN PRN Reason: Anxiety Last Admin: 03/29/23 20:22 Dose: 25 mg Lamotrigine (Lamotrigine 100 Mg Tablet) 150 mg PO BID [facility] Last Admin: 04/01/23 09:26 Dose: 150 mg Lorazepam (Lorazepam 1 Mg Tablet) 1 mg PO TID PRN PRN Reason: nausea (prodrom to seizure) Last Admin: 03/29/23 20:21 Dose: 1 mg Magnesium Hydroxide (Milk Of Magnesia 30 Ml Oral.Susp) 30 ml PO DAILY PRN PRN Reason: Constipation Multivitamins/Vitamin C (Multivitamin Tablet) 1 tab PO DAILY [facility] Last Admin: 04/01/23 09:26 Dose: 1 tab Nicotine Polacrilex (Nicotine Polacrilex 2 Mg Gum) 4 mg BUCCAL Q2H PRN PRN Reason: Nicotine Cravings Olanzapine (Olanzapine 5 Mg Tablet) 5 mg PO TID PRN PRN Reason: agitation Last Admin: 03/28/23 08:43 Dose: 5 mg Omeprazole (Omeprazole 20 Mg Capsule.Dr) 20 mg PO DAILY@0630 [facility] Last Admin: 04/01/23 06:20 Dose: 20 mg Risperidone (Risperidone 3 Mg Tablet) 3 mg PO BEDTIME [facility] Last Admin: 03/31/23 21:11 Dose: 3 mg Risperidone (Risperidone 2 Mg Tablet) 2 mg PO DAILY [facility] Last Admin: 04/01/23 09:26 Dose: 2 mg Trazodone HCl (Trazodone Hcl 50 Mg Tablet) 50 mg PO BEDTIME MRX1 PRN PRN Reason: Insomnia Last Admin: 03/29/23 20:21 Dose: 50 mg Zonisamide (Zonisamide 100 Mg Capsule) 400 mg PO DAILY [facility] Last Admin: 04/01/23 09:26 Dose: 400 mg Allergies Allergies Allergy/AdvReac Type Severity Reaction Status Date / Time folic acid Allergy Unknown Verified 03/15/23 16:35 ibuprofen Allergy Unknown Verified 03/15/23 16:35 loratadine Allergy Unknown Verified 03/15/23 16:35 phenytoin Allergy Unknown Verified 03/15/23 16:35 divalproex sodium AdvReac Severe psychosis, Verified 03/21/23 18:32 [From Depakote] violence Assessment & Plan Assessment & Plan (1) Seizure disorder: Status: Acute Code(s): G40.909 - Epilepsy, unspecified, not intractable, without status epilepticus Assessment and Plan: 38 years old woman who self reported that she suffered from seizure disorder and was seen Dr. Mishra in [facility]. She details of symptoms of seizures were not clear. At this time she was not having any obvious seizure-like episode and was taking lamotrigine 200 mg twice a day. No further intervention is recommended at this time and my recommendation is to refer her to Dr. Mishra for outpatient follow-up. Plan 03/29/23- Neurology input appreciated. Decrease Lamictal to 150 mg bid. Repeat level in one week, per recommendation of pt's neurologist, Dr. Mishra. Continue current regime and plan of care while pt recovers from COVID. 03/30/23 Continue current regime and plan of care. Discharge planning, possibly 04/04 in discussion with parents. 03/31 Patient can be heard talking to herself out loud with the door closed; on approach patient reports that she is good. Does not endorse any AVH. Denies any complaints or requests. no behavioral incidents, in good behavioral control 04/02 Continue COVID monitoring Continue current regime, plan, discharge planned for 04/04. Informed Consent: further education needed Reason for continued inpatient stay Substantial Risk for: rapid decompensation Time Spent With Patient Time: Total time managing care of this patient today ____ minutes.
[2023-04-01] MEDS: Acetaminophen 325 MG TABLET 650 MG PO (16:59)
[2023-04-01] MEDS: hydrOXYzine HCL 25 MG TABLET PO (17:00)
[2023-04-01 18:00] VITALS: BP 144/64; PULSE 92; TEMP 35.9
[2023-04-01] MEDS: risperiDONE 3 MG TABLET PO (22:25)
[2023-04-02] MEDS: Omeprazole 20 MG CAPSULE.DR PO (06:29)
--- NOTE | 2023-04-02 08:45 | P.PNPSI_ITS ---
Subjective Subjective Date of Service: 04/02/23 Reason For Visit: Schizophrenia Subjective Notes: Conditional Voluntary Healthcare Proxy: No Guardianship: No Medical Problems Affecting Mental Status: No Interim History: Pt seen, discussed with the team. Pt reports she is feeling improved. COVID sx decreased. No seizure activity. Looking forward to discharge 04/04. Medication Compliance: Yes Side effects from medications: No Attending Groups: No Review of Systems Acute medical concerns: No COVID + Medical Review of Systems: unchanged Review of Systems Review of Systems Yes all other systems are reviewed and are negative Mental Status Exam Mental Status Exam Patient Appearance: Appropriate Patient Orientation: Person, Place, Time and Situation Level of Consciousness: Alert Patient Behavior: Appropriate, Talkative and Good Eye Contact Mood Description: Constricted Affect Description: Constricted Patient Cognition Impaired: No Ability to Follow Directions: Good Speech Pattern: Spontaneous Speech Memory Description: Intact Hallucinations: None (denies) Delusions: Paranoid Ideation (mild) Thought Process: Intact Thought Content: positive for Circumstantial Depressive Symptoms: Thoughts of /Suicide (denies) Judgement: Fair Diagnostics Vital Signs (24Hr): Vital Signs - 24 hr 04/01/23 09:23 04/01/23 18:00 Temperature 98.7 F 96.7 F L Pulse Rate 96 92 Respiratory Rate 16 Blood Pressure 122/72 144/64 H Pulse Oximetry 95 Oxygen Delivery Method Room Air BMI result Body Mass Index 39.0 Labs 03/30/23 07:57 03/30/23 07:57 Labs: Laboratory Results - last 48 hr 03/31/23 11:55 COVID-19 ([facility]) Positive A COVID-19 Clin Com See Note Imaging Radiology Impressions: ITS Impressions Head CT 03/18/23 14:55 IMPRESSION: No acute intracranial pathology. Medications Medications Current Medications Acetaminophen (Acetaminophen 325 Mg Tablet) 650 mg PO Q6H PRN PRN Reason: Headache/Pain Mild Scale (1-3) Last Admin: 04/01/23 16:59 Dose: 650 mg Al Hydroxide/Mg Hydroxide (Magnesium Hydrox/Alum Hydrox 30 Ml Oral.Susp) 30 ml PO Q6H PRN PRN Reason: Heartburn/Nausea Clonazepam (Clonazepam 0.5 Mg Tablet) 0.5 mg PO DAILY PRN PRN Reason: Anxiety Last Admin: 03/22/23 13:11 Dose: 0.5 mg Ergocalciferol (Ergocalciferol (Vitamin D2) 1,250 Mcg Capsule) 1,250 mcg PO Q7D [facility] Last Admin: 03/29/23 13:33 Dose: 1,250 mcg Hydroxyzine HCl (Hydroxyzine Hcl 25 Mg Tablet) 25 mg PO Q6H PRN PRN Reason: Anxiety Last Admin: 04/01/23 17:00 Dose: 25 mg Lamotrigine (Lamotrigine 100 Mg Tablet) 150 mg PO BID [facility] Last Admin: 04/01/23 22:23 Dose: 150 mg Lorazepam (Lorazepam 1 Mg Tablet) 1 mg PO TID PRN PRN Reason: nausea (prodrom to seizure) Last Admin: 03/29/23 20:21 Dose: 1 mg Magnesium Hydroxide (Milk Of Magnesia 30 Ml Oral.Susp) 30 ml PO DAILY PRN PRN Reason: Constipation Multivitamins/Vitamin C (Multivitamin Tablet) 1 tab PO DAILY [facility] Last Admin: 04/01/23 09:26 Dose: 1 tab Nicotine Polacrilex (Nicotine Polacrilex 2 Mg Gum) 4 mg BUCCAL Q2H PRN PRN Reason: Nicotine Cravings Olanzapine (Olanzapine 5 Mg Tablet) 5 mg PO TID PRN PRN Reason: agitation Last Admin: 03/28/23 08:43 Dose: 5 mg Omeprazole (Omeprazole 20 Mg Capsule.Dr) 20 mg PO DAILY@0630 [facility] Last Admin: 04/02/23 06:29 Dose: 20 mg Risperidone (Risperidone 3 Mg Tablet) 3 mg PO BEDTIME [facility] Last Admin: 04/01/23 22:25 Dose: 3 mg Risperidone (Risperidone 2 Mg Tablet) 2 mg PO DAILY [facility] Last Admin: 04/01/23 09:26 Dose: 2 mg Trazodone HCl (Trazodone Hcl 50 Mg Tablet) 50 mg PO BEDTIME MRX1 PRN PRN Reason: Insomnia Last Admin: 03/29/23 20:21 Dose: 50 mg Zonisamide (Zonisamide 100 Mg Capsule) 400 mg PO DAILY [facility] Last Admin: 04/01/23 09:26 Dose: 400 mg Allergies Allergies Allergy/AdvReac Type Severity Reaction Status Date / Time folic acid Allergy Unknown Verified 03/15/23 16:35 ibuprofen Allergy Unknown Verified 03/15/23 16:35 loratadine Allergy Unknown Verified 03/15/23 16:35 phenytoin Allergy Unknown Verified 03/15/23 16:35 divalproex sodium AdvReac Severe psychosis, Verified 03/21/23 18:32 [From Depakote] violence Assessment & Plan Assessment & Plan (1) Seizure disorder: Status: Acute Code(s): G40.909 - Epilepsy, unspecified, not intractable, without status epilepticus Assessment and Plan: 38 years old woman who self reported that she suffered from seizure disorder and was seen Dr. Mishra in [facility]. She details of symptoms of seizures were not clear. At this time she was not having any obvious seizure- like episode and was taking lamotrigine 200 mg twice a day. No further intervention is recommended at this time and my recommendation is to refer her to Dr. Mishra for outpatient follow-up. Plan 03/29/23- Neurology input appreciated. Decrease Lamictal to 150 mg bid. Repeat level in one week, per recommendation of pt's neurologist, Dr. Mishra. Continue current regime and plan of care while pt recovers from COVID. 03/30/23 Continue current regime and plan of care. Discharge planning, possibly 04/04 in discussion with parents. 03/31 Patient can be heard talking to herself out loud with the door closed; on approach patient reports that she is good. Does not endorse any AVH. Denies any complaints or requests. no behavioral incidents, in good behavioral control 04/02 Continue COVID monitoring Continue current regime, plan, discharge planned for 04/04. Patient educated on: medication risk/benefits and therapeutic strategies Informed Consent: understands Reason for continued inpatient stay Substantial Risk for: rapid decompensation Time Spent With Patient Time: Total time managing care of this patient today ____ minutes.
[2023-04-02 09:15] VITALS: BP 128/75; PULSE 97; RESP 16; TEMP 36.1; O2SAT 99
[2023-04-02] MEDS: Zonisamide 100 MG CAPSULE 400 MG PO (09:16)
[2023-04-02] MEDS: Multivitamin TABLET 1 TAB PO (09:16)
[2023-04-02] MEDS: lamoTRIgine 100 MG TABLET 150 MG PO ×2 (09:16→22:11)
[2023-04-02] MEDS: risperiDONE 2 MG TABLET PO (09:17)
[2023-04-02 17:05] VITALS: BP 136/88; PULSE 95; TEMP 36.5; O2SAT 100
[2023-04-02] MEDS: Acetaminophen 325 MG TABLET 650 MG PO (21:02)
[2023-04-02] MEDS: Throat Lozenge, Medicated LOZENGE 1 LOZENGE MUCOUS MEM (21:03)
[2023-04-02] MEDS: risperiDONE 3 MG TABLET PO (22:12)
[2023-04-03] MEDS: Omeprazole 20 MG CAPSULE.DR PO (06:34)
[2023-04-03 09:00] VITALS: BP 125/85; PULSE 98; RESP 16; TEMP 36.9; O2SAT 99
[2023-04-03] MEDS: Zonisamide 100 MG CAPSULE 400 MG PO (09:15)
[2023-04-03] MEDS: lamoTRIgine 100 MG TABLET 150 MG PO ×2 (09:16→20:36)
[2023-04-03] MEDS: risperiDONE 2 MG TABLET PO (09:16)
[2023-04-03] MEDS: Multivitamin TABLET 1 TAB PO (09:16)
--- NOTE | 2023-04-03 14:26 | HO.PSYCHPN ---
Subjective Subjective Date of Service: 04/03/23 Reason For Visit: Schizophrenia Subjective Notes: Conditional Voluntary Healthcare Proxy: No Guardianship: No Medical Problems Affecting Mental Status: No Interim History: Pt seen, discussed with the team. She reports feeling improved. Denies sx COVID which are difficult. Showered today-spending some time on the phone, some time in milieu. Excited to return home No current questions, concerns. Will schedule neuro follow up with Dr. Mishra's office 04/04 as they needed to alter his schedule when called on 04/01/ Medication Compliance: Yes Side effects from medications: No Attending Groups: No Review of Systems Acute medical concerns: No COVID+ Medical Review of Systems: unchanged Review of Systems Review of Systems Yes all other systems are reviewed and are negative Mental Status Exam Mental Status Exam Patient Appearance: Appropriate Patient Orientation: Person, Place, Time and Situation Level of Consciousness: Alert Patient Behavior: Appropriate, Talkative and Good Eye Contact Mood Description: Constricted Affect Description: Constricted Patient Cognition Impaired: No Ability to Follow Directions: Good Speech Pattern: Spontaneous Speech Memory Description: Intact Hallucinations: None (denies) Delusions: Not Present Thought Process: Intact Thought Content: positive for Circumstantial Depressive Symptoms: Thoughts of /Suicide (denies) Judgement: Good Diagnostics Vital Signs (24Hr): Vital Signs - 24 hr 04/02/23 17:05 04/03/23 09:00 Temperature 97.7 F 98.4 F Pulse Rate 95 98 Respiratory Rate 16 Blood Pressure 136/88 125/85 Pulse Oximetry 100 99 Oxygen Delivery Method Room Air Room Air BMI result Body Mass Index 39.0 Labs 03/30/23 07:57 03/30/23 07:57 Imaging Radiology Impressions: ITS Impressions Head CT 03/18/23 14:55 IMPRESSION: No acute intracranial pathology. Medications Medications Current Medications Acetaminophen (Acetaminophen 325 Mg Tablet) 650 mg PO Q6H PRN PRN Reason: Headache/Pain Mild Scale (1-3) Last Admin: 04/02/23 21:02 Dose: 650 mg Al Hydroxide/Mg Hydroxide (Magnesium Hydrox/Alum Hydrox 30 Ml Oral.Susp) 30 ml PO Q6H PRN PRN Reason: Heartburn/Nausea Benzocaine (Throat Lozenge, Medicated Lozenge) 1 lozenge MUCOUS MEM Q1H PRN PRN Reason: Sore Throat Last Admin: 04/02/23 21:03 Dose: 1 lozenge Clonazepam (Clonazepam 0.5 Mg Tablet) 0.5 mg PO DAILY PRN PRN Reason: Anxiety Last Admin: 03/22/23 13:11 Dose: 0.5 mg Ergocalciferol (Ergocalciferol (Vitamin D2) 1,250 Mcg Capsule) 1,250 mcg PO Q7D [facility] Last Admin: 03/29/23 13:33 Dose: 1,250 mcg Hydroxyzine HCl (Hydroxyzine Hcl 25 Mg Tablet) 25 mg PO Q6H PRN PRN Reason: Anxiety Last Admin: 04/01/23 17:00 Dose: 25 mg Lamotrigine (Lamotrigine 100 Mg Tablet) 150 mg PO BID [facility] Last Admin: 04/03/23 09:16 Dose: 150 mg Lorazepam (Lorazepam 1 Mg Tablet) 1 mg PO TID PRN PRN Reason: nausea (prodrom to seizure) Last Admin: 03/29/23 20:21 Dose: 1 mg Magnesium Hydroxide (Milk Of Magnesia 30 Ml Oral.Susp) 30 ml PO DAILY PRN PRN Reason: Constipation Multivitamins/Vitamin C (Multivitamin Tablet) 1 tab PO DAILY [facility] Last Admin: 04/03/23 09:16 Dose: 1 tab Nicotine Polacrilex (Nicotine Polacrilex 2 Mg Gum) 4 mg BUCCAL Q2H PRN PRN Reason: Nicotine Cravings Olanzapine (Olanzapine 5 Mg Tablet) 5 mg PO TID PRN PRN Reason: agitation Last Admin: 03/28/23 08:43 Dose: 5 mg Omeprazole (Omeprazole 20 Mg Capsule.Dr) 20 mg PO DAILY@0630 [facility] Last Admin: 04/03/23 06:34 Dose: 20 mg Risperidone (Risperidone 3 Mg Tablet) 3 mg PO BEDTIME [facility] Last Admin: 04/02/23 22:12 Dose: 3 mg Risperidone (Risperidone 2 Mg Tablet) 2 mg PO DAILY [facility] Last Admin: 04/03/23 09:16 Dose: 2 mg Trazodone HCl (Trazodone Hcl 50 Mg Tablet) 50 mg PO BEDTIME MRX1 PRN PRN Reason: Insomnia Last Admin: 03/29/23 20:21 Dose: 50 mg Zonisamide (Zonisamide 100 Mg Capsule) 400 mg PO DAILY [facility] Last Admin: 04/03/23 09:15 Dose: 400 mg Allergies Allergies Allergy/AdvReac Type Severity Reaction Status Date / Time folic acid Allergy Unknown Verified 03/15/23 16:35 ibuprofen Allergy Unknown Verified 03/15/23 16:35 loratadine Allergy Unknown Verified 03/15/23 16:35 phenytoin Allergy Unknown Verified 03/15/23 16:35 divalproex sodium AdvReac Severe psychosis, Verified 03/21/23 18:32 [From Depakote] violence Assessment & Plan Assessment & Plan (1) Seizure disorder: Status: Acute Code(s): G40.909 - Epilepsy, unspecified, not intractable, without status epilepticus Assessment and Plan: 38 years old woman who self reported that she suffered from seizure disorder and was seen Dr. Mishra in [facility]. She details of symptoms of seizures were not clear. At this time she was not having any obvious seizure-like episode and was taking lamotrigine 200 mg twice a day. No further intervention is recommended at this time and my recommendation is to refer her to Dr. Mishra for outpatient follow-up. Plan 03/29/23- Neurology input appreciated. Decrease Lamictal to 150 mg bid. Repeat level in one week, per recommendation of pt's neurologist, Dr. Mishra. Continue current regime and plan of care while pt recovers from COVID. 03/30/23 Continue current regime and plan of care. Discharge planning, possibly 04/04 in discussion with parents. 03/31 Patient can be heard talking to herself out loud with the door closed; on approach patient reports that she is good. Does not endorse any AVH. Denies any complaints or requests. no behavioral incidents, in good behavioral control 04/02 Continue COVID monitoring Continue current regime, plan, discharge planned for 04/04. 04/03/23: Continue current regime and plan of care. Patient educated on: medication risk/benefits and therapeutic strategies Informed Consent: understands and further education needed Reason for continued inpatient stay Substantial Risk for: rapid decompensation Time Spent With Patient Time: Total time managing care of this patient today ____ minutes.
[2023-04-03 17:18] VITALS: BP 127/73; PULSE 100; RESP 17; TEMP 37; O2SAT 100
[2023-04-03] MEDS: traZODone HCL 50 MG TABLET PO (20:36)
[2023-04-03] MEDS: risperiDONE 3 MG TABLET PO (20:36)
[2023-04-03] MEDS: LORazepam 1 MG TABLET PO (20:36)
[2023-04-03] MEDS: Acetaminophen 325 MG TABLET 650 MG PO (22:38)
[2023-04-04] MEDS: Magnesium Hydrox/Alum Hydrox 30 ML ORAL.SUSP PO (00:57)
[2023-04-04 06:00] VITALS: BP 125/67; PULSE 78; TEMP 36.4; O2SAT 97
[2023-04-04] MEDS: Omeprazole 20 MG CAPSULE.DR PO (06:52)
[2023-04-04] MEDS: lamoTRIgine 100 MG TABLET 150 MG PO (08:46)
[2023-04-04] MEDS: Multivitamin TABLET 1 TAB PO (08:48)
[2023-04-04] MEDS: risperiDONE 2 MG TABLET PO (08:48)
[2023-04-04] MEDS: Zonisamide 100 MG CAPSULE 400 MG PO (08:48)
--- NOTE | 2023-04-04 09:36 | P.DS_ITS ---
DS: Providers Provider Date of Service: 04/04/23 Date of admission: 03/15/23 17:45 Date of discharge: 04/04/23 Primary care physician: Unknown Physician Admitting clinician: Cristina Torres Attending physician on admission: Kunal Patel Consults: 03/15/23 19:57 Consult to Hospitalist Routine Comment: Consulting Provider: Hospitalist Reason For Exam: OSH admission 03/18/23 14:45 Consult to Neurology Routine Consulting Provider: [facility] Reason for consultation: Epilepsy, r/o encephalopathy, med changes Has provider been notified: No 03/29/23 10:04 Consult to Neurology Routine Consulting Provider: [facility] Reason for consultation: Epilepsy, Lamictal level high, recent encephalopathy, Has provider been notified: No Attending physician on discharge: Kunal Patel Discharging clinician: Cristina Torres DS: Diagnosis Discharge Diagnosis (1) Seizure disorder: Status: Acute DS: Medications Discharge Medications Home Medications: Previous Rx's Medication Instructions Recorded Iron/Multivitamin/Mineral 1 cap PO DAILY #30 caps 03/21/23 ergocalciferol (vitamin D2) 1,250 1,250 mcg PO Q7D #4 caps 03/21/23 mcg (50,000 unit) capsule (Vitamin D2) omeprazole 20 mg PO DAILY@0630 #30 caps 03/21/23 zonisamide 100 mg capsule 400 mg (4 x 100 mg) PO DAILY #30 03/21/23 caps lamotrigine 100 mg tablet 150 mg (1.5 x 100 mg) PO BID #0 04/03/23 tabs lamotrigine 100 mg tablet 100 mg PO BID #60 tabs 04/03/23 (Lamictal) lamotrigine 25 mg tablet (Lamictal) 50 mg (2 x 25 mg) PO BID 30 days 04/03/23 #120 tabs risperidone 2 mg tablet 2 mg PO DAILY #0 tabs 04/03/23 risperidone 3 mg tablet (Risperdal) 3 mg PO BEDTIME #30 tabs 04/03/23 Mental Status Exam Mental Status Exam Patient Appearance: Appropriate Patient Orientation: Person, Place, Time and Situation Level of Consciousness: Alert Patient Behavior: Appropriate, Talkative and Good Eye Contact Mood Description: Constricted Affect Description: Constricted Patient Cognition Impaired: No Ability to Follow Directions: Good Speech Pattern: Spontaneous Speech Memory Description: Intact Hallucinations: None (denies) Delusions: Not Present Thought Process: Intact Thought Content: positive for Circumstantial Depressive Symptoms: Thoughts of /Suicide (denies) Judgement: Good Data Data Completed and Pending Completed studies during hospitalization [Text1]: 03/28/23 03/30/23 03/31/23 09:25 07:57 11:55 WBC 8.1 RBC 4.20 Hgb 12.7 Hct 38.6 MCV 91.9 MCH 30.2 MCHC 32.9 RDW 14.2 Plt Count 290 MPV 9.1 L Immature Gran % (Auto) 0.7 H Neut % (Auto) 57.0 Lymph % (Auto) 30.9 Cloud % (Auto) 8.3 Eos % (Auto) 2.6 Baso % (Auto) 0.5 Lymph # (Auto) 2.5 Cloud # (Auto) 0.7 Eos # (Auto) 0.2 Baso # (Auto) 0.0 Abs Immat Gran (auto) 0.06 H Absolute Neuts (auto) 4.6 Absolute Nucleated RBC 0.000 Nucleated RBC % (auto) 0.0 Sodium 136 Potassium 4.0 Chloride 107 Carbon Dioxide 22 Anion Gap 11 L BUN 15 Creatinine 1.18 Estim Creat Clear Calc 65.5 Estimated GFR 52 Random Glucose 119 H Calcium 9.1 Total Bilirubin 0.2 AST 20 ALT 42 H Alkaline Phosphatase 104 Ammonia 34 Total Protein 6.8 Albumin 3.7 COVID-19 ([facility]) Positive A Positive A COVID-19 Clin Com See Note See Note Imaging Diagnostic Imaging Impressions Head CT 03/18/23 14:55 IMPRESSION: No acute intracranial pathology. DS: Summary Hospital Course Hospital Course: Admission to adult psychiatry in transfer from [facility] for exacerbation of schizoaffective disorder, bipolar type and seizure disorder. Pt reports argument with partner prior to admission and presented with paranoia. Pt, in January, started a process of anticonvulsant changes with Depakote and Lamictal with her neurologist Dr. Mishra. Dr. Mishra was consulted during pt's admission and was of tremendous assistance in helping pt to stabilize. Depakote was tapered and discontinued. It was thought that presenting symptoms may have been an adverse response to the Depakote. Pt was able to stabilize in the milieu and on medications and return to her family and out patient teams. Status at Discharge Functional status at discharge: independent ambulation Overall status at discharge: patient is progressing back to baseline Time Spent with Patient Time attestation: Total time managing care of this patient today ____ minutes. Time spent: Greater than 30 minutes Discharge Plan Discharge Anticipated Discharge Date/Time: 03/22/23 12:00 Patient Disposition: Home, Self-Care Discharge Diagnosis: Schizoaffective Disorder Seizure Disorder Referrals: Donna Loco, Therapist, Sofia [Other] - 04/05/23 11:15 am (Regular reoccurring appointment ) Dr Mishra, [facility], Neurologist [Other] - 06/09/23 2:00 pm Justyna Orantes, Medication Provider [Other] - 04/27/23 4:40 pm (appointment is via phone, Justyna's office will call you a few minutes prior to the appointment ) Mele Mishra MD [Physician] - 06/09/23 2:00 pm (Video appt with Dr. Mishra) Discharge Medications: New zonisamide 100 mg Capsule 400 mg PO DAILY Qty: 30 0RF ergocalciferol (vitamin D2) [Vitamin D2] 1,250 mcg (50,000 unit) Capsule 1,250 mcg PO Q7D Qty: 4 0RF lamotrigine 100 mg Tablet 150 mg PO BID Qty: 0 0RF risperidone 2 mg Tablet 2 mg PO DAILY Qty: 0 0RF lamotrigine [Lamictal] 25 mg tablet 50 mg PO BID 30 Days Qty: 120 0RF Rx Instructions: Lamictal 150 mg twice per day. lamotrigine [Lamictal] 100 mg tablet 100 mg PO BID Qty: 60 0RF Rx Instructions: Lamictal 150 mg bid risperidone [Risperdal] 3 mg tablet 3 mg PO BEDTIME Qty: 30 0RF Rx Instructions: Risperdal 2 mg a.m. Rispedal 3 mg h.s. Continued Iron/Multivitamin/Mineral tablet 1 cap PO DAILY Qty: 30 0RF omeprazole 20 mg PO DAILY@0630 Qty: 30 0RF Discontinued clonazepam 0.5 mg 0.5 mg PO DAILY PRN (Reason: Anxiety) lamotrigine 300 mg PO DAILY Depakote ER 500 mg PO DAILY risperidone 3 mg PO BEDTIME Discharge Orders: Discharge Order (Routine); Ordered 04/04/23 Ordered By: Cristina Torres Diet: Advance to usual diet Activity on Discharge: As tolerated Stand Alone Forms: Patient Portal Discharge page, Community Support Care Plan Goals: Mood and Behavioral Stabilization Health Concerns: Mood and Behavioral Stabilization Plan of Treatment: Attend scheduled appointments Take medications as directed Dr. Mishra will see you for your previously scheduled appointment. He requests that you have labs taken this week We will order those labs for Tuesday, April 06, 2023 -Lamictal level-take your Lamictal dosage 12 hours before you have blood drawn. -Complete Blood Count -Comprehensive Metabolic Panel Assessment: Scheduled discharge Discharge Date/Time: 04/04/23 11:30
== END 2023-04-04 11:30 | disposition home or self-care (01) | DRG 750 ==
PROVIDERS: Psychiatry & Neurology Psychiatry; Social Worker; Admitting Provider Psychiatry & Neurology Psychiatry; Visit Provider Clinical Nurse Specialist Psychiatric/Mental Health, Adult
DX: F25.0 Schizoaffective disorder, bipolar type (principal); U07.1 COVID-19; G40.909 Epilepsy, unspecified, not intractable, without status epilepticus; Z91.148 Patient's other noncompliance with medication regimen for other reason; K21.9 Gastro-esophageal reflux disease without esophagitis; Z87.891 Personal history of nicotine dependence; Z79.899 Other long term (current) drug therapy
CPT/HCPCS: 36415; 70450; 80053; 80061; 80076; 80164; 80175; 82140; 82607; 82746; 83036; 84439; 84443; 85025; 87635

== ENCOUNTER → 2023-03-15 17:45 | Outpatient (BNV) | payer OTHER, SELFPAY | PROVIDERS: Admitting Provider Psychiatry & Neurology Psychiatry; Visit Provider Clinical Nurse Specialist Psychiatric/Mental Health, Adult | DX: G40.909 Epilepsy, unspecified, not intractable, without status epilepticus (principal) | CPT/HCPCS: 90792; 99231; 99232; 99239 ==

== ENCOUNTER → 2023-03-15 17:45 | Outpatient (BNV) | payer OTHER, SELFPAY | PROVIDERS: Admitting Provider Psychiatry & Neurology Psychiatry; Visit Provider Student in an Organized Health Care Education/Training Program | DX: Z02.2 Encounter for examination for admission to residential institution (principal) | CPT/HCPCS: 99429 ==